=== PATIENT | female | born 1980 | race Caucasian/White ===

== ENCOUNTER 2017-02-12 08:48 | Emergency (ER) | payer OTHER ==
[2017-02-12 09:06] VITALS: BP 144/77
[2017-02-12] MEDS ORDERED: Sodium Chloride 0.9% 10 ML Syringe FLUSH PRN (09:10)
[2017-02-12] MEDS ORDERED: Acetaminophen 325 MG Tab PO ONE (09:27)
--- NOTE | 2017-02-12 09:43 | EDM.PDOC ---
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 She had onset of some mild pelvic discomfort last evening. She did have some more severe cramping and pelvic discomfort about 4 hours ago this morning and when she went to the bathroom there was "a gush of blood". She did not see any clots or tissue. The discomfort let up and she was able to go to work a couple of hours ago. The pain did start coming back about an hour ago and she does rate that mild to moderately uncomfortable at this time. No further vaginal bleeding or spotting up to this time. She has no chest or shoulder pain. No unusual dizziness. This had been going well for her up until this time. Uterine Pain Score (Numeric/FACES): 6 - Related Data Allergies Allergy/AdvReac Type Severity Reaction Status Date / Time No Known Allergies Allergy Verified 02/12/17 09:06 Home Meds: Home Meds Sertraline [Zoloft] 50 mg PO DAILY 08/28/14 [History] Albuterol [Proventil HFA] 2 puff INH Q4H PRN #1 inhaler 04/06/16 [Rx] Past Medical History - Past Health History Medical/Surgical History: Denies Medical/Surgical History Psychiatric History: Reports: Anxiety - Infectious Disease History Infectious Disease History: Reports: Chicken Pox Social & Family History - Family History Family Medical History: Noncontributory - Tobacco Use Smoking Status *Q: Never Smoker Second Hand Smoke Exposure: No - Caffeine Use Caffeine Use: Reports: Coffee - Alcohol Use Days Per Week of Alcohol Use: 0 - Recreational Drug Use Recreational Drug Use: No ED ROS GENERAL - Review of Systems Review Of Systems: See Below Constitutional: Denies: Fever, Diaphoresis HEENT: Reports: No Symptoms Respiratory: Denies: Shortness of Breath, Pleuritic Chest Pain Cardiovascular: Denies: Chest Pain GI/Abdominal: Denies: Abdominal Pain (No upper abdominal discomfort), Nausea, Vomiting : Reports: Other (One episode of vaginal bleeding about 4 hours ago). Denies : Flank Pain Musculoskeletal: Denies: Back Pain Skin: Reports: No Symptoms Neurological: Denies: Dizziness, Syncope ED EXAM - Physical Exam Exam: See Below General Appearance: Alert, Mild Distress Throat/Mouth: Normal Inspection Neck: Supple, Full Range of Motion Respiratory/Chest: No Respiratory Distress, Lungs Clear, Normal Breath Sounds Cardiovascular: Regular Rate, Rhythm GI/Abdominal: Soft, Other (Very mild tenderness lower mid abdomen and pelvis). No: Guarding, Rebound Back Exam: No: CVA Tenderness (L), CVA Tenderness (R) Extremities: Normal Inspection. No: Pedal Edema, Leg Pain Neurological: Alert, Oriented, No Motor/Sensory Deficits Skin Exam: Warm, Dry, Normal Color Course - Vital Signs Last Recorded V/S: Last Vital Signs Temp Pulse 75 02/12/17 08:58 Resp 18 02/12/17 08:58 BP 144/77 H 02/12/17 08:58 Pulse Ox 97 02/12/17 08:58 - Orders/Labs/Meds Orders: Active Orders 24 hr Category Date Time Status Peripheral IV Care [RC] . DIRECTED Care 02/12/17 09:11 Active OB Transvaginal [US] Stat Exams 02/12/17 09:28 Taken Sodium Chloride 0.9% [Saline Flush] Med 02/12/17 09:10 Active 10 ml FLUSH ASDIRECTED PRN Peripheral IV Insertion Adult [OM.PC] Stat Oth 02/12/17 09:11 Ordered Medication Orders Sodium Chloride (Saline Flush) 10 ml FLUSH ASDIRECTED PRN PRN Reason: Keep Vein Open Labs: Laboratory Tests 02/12/17 02/12/17 02/12/17 Range/Units 09:20 09:20 09:20 WBC 7.13 (3.98-10.04) K/mm3 RBC 4.61 (3.98-5.22) M/mm3 Hgb 12.3 (11.2-15.7) gm/L Hct 37.3 (34.1-44.9) % MCV 80.9 (79.4-94.8) fl MCH 26.7 (25.6-32.2) pg MCHC 33.0 (32.2-35.5) g/dl RDW Std Deviation 48.7 H (36.4-46.3) fL Plt Count 296 (182-369) K/mm3 MPV 9.4 (9.4-12.3) fl Neut % (Auto) 63.5 (34.0-71.1) % Lymph % (Auto) 26.6 (19.3-51.7) % [place] % (Auto) 6.3 (4.7-12.5) % Eos % (Auto) 3.1 (0.7-5.8) Baso % (Auto) 0.1 (0.1-1.2) % Neut # (Auto) 4.52 (1.56-6.13) K/mm3 Lymph # (Auto) 1.90 (1.18-3.74) K/mm3 [place] # (Auto) 0.45 H (0.24-0.36) K/mm3 Eos # (Auto) 0.22 (0.04-0.36) K/mm3 Baso # (Auto) 0.01 (0.01-0.08) K/mm3 HCG, Qual Cancelled HCG, Quant 71376.0 mIU/mL Blood Type Gel Antibody Screen 02/12/17 Range/Units 09:20 WBC (3.98-10.04) K/mm3 RBC (3.98-5.22) M/mm3 Hgb (11.2-15.7) gm/L Hct (34.1-44.9) % MCV (79.4-94.8) fl MCH (25.6-32.2) pg MCHC (32.2-35.5) g/dl RDW Std Deviation (36.4-46.3) fL Plt Count (182-369) K/mm3 MPV (9.4-12.3) fl Neut % (Auto) (34.0-71.1) % Lymph % (Auto) (19.3-51.7) % [place] % (Auto) (4.7-12.5) % Eos % (Auto) (0.7-5.8) Baso % (Auto) (0.1-1.2) % Neut # (Auto) (1.56-6.13) K/mm3 Lymph # (Auto) (1.18-3.74) K/mm3 [place] # (Auto) (0.24-0.36) K/mm3 Eos # (Auto) (0.04-0.36) K/mm3 Baso # (Auto) (0.01-0.08) K/mm3 HCG, Qual HCG, Quant mIU/mL Blood Type A POSITIVE Gel Antibody Screen Negative Meds: Medications Generic Name Dose Route Start Last Admin Trade Name Freniki PRN Reason Stop Dose Admin Sodium Chloride 10 ml 02/12/17 09:10 Saline Flush FLUSH ASDIRECTED PRN Keep Vein Open Discontinued Medications Generic Name Dose Route Start Last Admin Trade Name Freq PRN Reason Stop Dose Admin Acetaminophen 975 mg 02/12/17 09:27 Tylenol PO 02/12/17 09:28 NOW ONE - Re-Assessments/Exams Free Text/Narrative Re-Assessment/Exam: 02/12/17 11:16 US looks good at this time, see Radiologist report for details. She is resting comfortably at this time, cramping has stopped. No further bleeding since the episode about 6 hrs ago. Discharge instr. as documented. Departure - Departure Time of Disposition: 11:13 Disposition: Home, Self-Care 01 Condition: Fair Clinical Impression: First trimester Vaginal bleeding in Qualifiers: Trimester: first trimester Qualified Code(s): O46.91 - Antepartum hemorrhage, unspecified, first trimester - Discharge Information Referrals: Evelia Patel NP [Primary Care Provider] - Forms: ED Department Discharge Additional Instructions: rest, avoid exertional activity, avoid sexual activity for now, drink plenty of water to maintain hydration. Call for OB appt. if you have any further bleeding or cramping. Return to ED if sx worsening in any way, especially if you develop heavy bleeding soaking more than one pad per hour for more than 1 or 2 hours. - My Orders Last 24 Hours: My Active Orders 02/12/17 09:10 Sodium Chloride 0.9% [Saline Flush] 10 ml FLUSH ASDIRECTED PRN 02/12/17 09:11 Peripheral IV Care [RC] . DIRECTED Peripheral IV Insertion Adult [OM.PC] Stat 02/12/17 09:28 OB Transvaginal [US] Stat - Assessment/Plan Last 24 Hours: My Active Orders 02/12/17 09:10 Sodium Chloride 0.9% [Saline Flush] 10 ml FLUSH ASDIRECTED PRN 02/12/17 09:11 Peripheral IV Care [RC] . DIRECTED Peripheral IV Insertion Adult [OM.PC] Stat 02/12/17 09:28 OB Transvaginal [US] Stat
--- NOTE | 2017-02-12 11:21 | US ---
First trimester obstetrical ultrasound (multiple gestation) Dates: LMP: LMP given as 11/27/16, DONTAE 09/03/17, gestational age 11 weeks 0 days Twin A: Current ultrasound: DONTAE 09/04/17, gestational age 10 weeks 6 days Earliest ultrasound (01/15/17): DONTAE 09/07/17, gestational age 10 weeks 3 days Twin B: Current ultrasound: DONTAE 09/06/17, gestational age 10 weeks 4 days Earliest ultrasound (01/15/17) DONTAE 09/07/17, gestational age 10 weeks 3 days Separate membrane is identified between the 2 embryos compatible with 2 separate amniotic sacs. No subchorionic hemorrhage is seen. Small amount of free fluid is seen within the cul-de-sac which is incidental. Maternal ovaries are seen and appear unremarkable. Measurements: Twin A: [place]-rump length: 3.97 cm - 10 weeks 6 days Heart rate: 168 BPM Twin B: [place]-rump length: 4.03 cm - 11 weeks 0 days Heart rate: 168 BPM Impression: 1. Twin gestations developing in separate amniotic sacs. Dates as noted above. 2. No complicating process is appreciated by ultrasound at this time. Diagnostic code #1
== END 2017-02-12 11:45 | disposition home or self-care (01) ==
LOC: JD.ED 08:48
DX: O20.9 Hemorrhage in early pregnancy, unspecified (principal); O99.341 Other mental disorders complicating pregnancy, first trimester; F41.9 Anxiety disorder, unspecified; Z3A.11 11 weeks gestation of pregnancy
CPT/HCPCS: 36415; 76817; 84702; 85025; 86850; 86900; 86901; 99284; A9270; 99282

== ENCOUNTER 2017-02-24 22:51 | Emergency (ER) | payer OTHER ==
[2017-02-24 23:04] VITALS: BP 153/105
--- NOTE | 2017-02-24 23:40 | EDM.PDOC ---
ED HPI GENERAL MEDICAL PROBLEM - General Chief Complaint: Headache Stated Complaint: HEADACHE Time Seen by Provider: 02/24/17 23:40 - History of Present Illness INITIAL COMMENTS - FREE TEXT/NARRATIVE: 36-year-old female presents to the emergency room with a headache. Patient is in her first trimester with twins. Patient developed a headache several days ago. She was seen in the clinic diagnosed with sinusitis started on amoxicillin 875 mg twice a day she's been on this for about 5 days now has not noticed any appreciable improvement she was also started on Tylenol with Codeine this is not seem to help much. The patient was seen by her dentist who did not find any concerning dental issues. The patient is bothered by not being able to get any sleep. She denies fevers or chills she does not have frequent cough. If she tries to lie down she gets a throbbing sensation in her left upper teeth Left Face Pain Score (Numeric/FACES): 10 - Related Data Allergies Allergy/AdvReac Type Severity Reaction Status Date / Time No Known Allergies Allergy Verified 02/24/17 22:59 Home Meds: Home Meds Sertraline [Zoloft] 50 mg PO DAILY 08/28/14 [History] Albuterol [Proventil HFA] 2 puff INH Q4H PRN #1 inhaler 04/06/16 [Rx] Past Medical History - Past Health History Medical/Surgical History: Denies Medical/Surgical History Psychiatric History: Reports: Anxiety - Infectious Disease History Infectious Disease History: Reports: Chicken Pox Social & Family History - Family History Family Medical History: Noncontributory - Tobacco Use Smoking Status *Q: Never Smoker Second Hand Smoke Exposure: No - Caffeine Use Caffeine Use: Reports: Coffee - Alcohol Use Days Per Week of Alcohol Use: 0 - Recreational Drug Use Recreational Drug Use: No ED ROS GENERAL - Review of Systems Review Of Systems: See Below Constitutional: Reports: No Symptoms. Denies: Fever, Chills HEENT: Reports: Ear Pain, Sinus Problem Respiratory: Reports: No Symptoms Cardiovascular: Reports: No Symptoms Endocrine: Reports: No Symptoms GI/Abdominal: Reports: No Symptoms : Reports: No Symptoms Neurological: Reports: Headache. Denies: Confusion, Dizziness, Numbness Psychiatric: Reports: No Symptoms - Physical Exam Exam: See Below Exam Limited By: No Limitations General Appearance: Alert, No Apparent Distress Eye Exam: Bilateral Eye: Normal Inspection Ears: Normal External Exam, Normal Canal, Normal TMs Nose: Normal Inspection, Normal Mucosa, No Blood, Other (Sinus percussion reveals marked sinus tenderness over the left maxillary sinus this makes her pain much worse) Throat/Mouth: Normal Inspection, Normal Lips, Normal Teeth, Normal Gums, Normal Oropharynx, Normal Voice, No Airway Compromise Head Exam: Atraumatic, Normocephalic Neck: Normal Inspection, Supple, Non-Tender, Full Range of Motion. No: Lymphadenopathy (R) Respiratory/Chest: No Respiratory Distress, Lungs Clear, Normal Breath Sounds, No Accessory Muscle Use Cardiovascular: Regular Rate, Rhythm, No Edema, No Murmur GI/Abdominal: Normal Bowel Sounds, Soft, Non-Tender Neuro Exam (Abbreviated): Other (Cranial nerves II through XII grossly intact all muscle groups the upper and lower extremities are equal and appropriate bilaterally cerebellar testing is entirely within normal limits deep tendon reflexes are normal not brisk these are checked at the brachial radialis bilaterally and at the patellar tendons bilaterally) Back Exam: Normal Inspection. No: CVA Tenderness (L), CVA Tenderness (R) Extremities: Normal Inspection, No Pedal Edema Psychiatric: Normal Affect Course - Vital Signs Last Recorded V/S: Last Vital Signs Temp 36.8 C 02/24/17 22:59 Pulse 71 02/24/17 22:59 Resp 18 02/24/17 22:59 BP 153/105 H 02/24/17 22:59 Pulse Ox 100 02/24/17 22:59 - Orders/Labs/Meds Labs: Laboratory Tests 02/25/17 Range/Units 00:15 Urine Color Yellow (Yellow) Urine Appearance Clear (Clear) Urine pH 6.0 (5.0-8.0) Ur Specific [place] 1.020 (1.005-1.030) Urine Protein Negative (Negative) Urine Glucose (UA) Negative (Negative) Urine Ketones Negative (Negative) Urine Occult Blood Negative (Negative) Urine Nitrite Negative (Negative) Urine Bilirubin Negative (Negative) Urine Urobilinogen 0.2 (0.2-1.0) Ur Leukocyte Esterase Negative (Negative) Urine RBC Not seen (0-5) /hpf Urine WBC 0-5 (0-5) /hpf Ur Epithelial Cells 10-20 H (0-5) /hpf Urine Bacteria Rare (FEW) /hpf Urine Mucus Not seen (FEW) /hpf Meds: Medications Discontinued Medications Generic Name Dose Route Start Last Admin Trade Name Lloyd PRN Reason Stop Dose Admin Diphenhydramine HCl 25 mg 02/24/17 23:53 02/25/17 00:15 Benadryl IVPUSH 02/24/17 23:54 25 mg ONETIME ONE Administration Lactated Ringer's 1,000 mls @ 999 mls/hr 02/24/17 23:53 02/25/17 00:14 Ringers, Lactated IV 02/25/17 00:53 999 mls/hr .BOLUS ONE Administration Ondansetron HCl 4 mg 02/24/17 23:53 02/25/17 00:14 Zofran IVPUSH 02/24/17 23:54 4 mg ONETIME ONE Administration - Re-Assessments/Exams Free Text/Narrative Re-Assessment/Exam: 02/25/17 01:21 Patient has done well and emergency department because of her headaches could very well be sinus related. However she's been started on amoxicillin she has not responded in 4-5 days of therapy which isn't that abnormal. But I would be hoping to see some improvement. She was mildly hypertensive when she came in. With her this can be a little concerning urinalysis does not show any proteinuria she's not hyperreflexic and her exam is otherwise normal from a neurologic standpoint area the patient was treated with fluids Benadryl and Zofran the patient developed a little bit of dizziness requested the IV fluids be stopped. However at this point the patient feels much better and would like to go home and get some rest. Departure - Departure Time of Disposition: :23 Disposition: Home, Self-Care 01 Clinical Impression: Left maxillary sinusitis, Cephalgia - Discharge Information Referrals: Evelia Patel STRUCTURAL STEEL EQUIPMENT ERECTOR [Primary Care Provider] - Forms: ED Department Discharge Additional Instructions: Return to the emergency room with any questions problems or worsening symptoms. Go home and get some sleep. Follow-up with Dr. Eller later this week recheck your blood pressure.
[2017-02-24] MEDS ORDERED: Lactated Ringers 1,000 ML IV ONE (23:53)
[2017-02-24] MEDS ORDERED: diphenhydrAMINE 50 MG/ML SDV IVPUSH ONE (23:53)
[2017-02-24] MEDS ORDERED: Ondansetron 4 MG/2 ML SDV IVPUSH ONE (23:53)
== END 2017-02-25 01:33 | disposition home or self-care (01) ==
LOC: JD.ED 22:51
DX: J32.0 Chronic maxillary sinusitis (principal); F41.9 Anxiety disorder, unspecified
CPT/HCPCS: 81001; 96374; 96375; 99284; J1200; J2405; J7120; 99283

== ENCOUNTER 2017-08-06 23:19 | Inpatient (IN) | payer OTHER ==
[2017-08-07] MEDS ORDERED: Ondansetron 4 MG/2 ML SDV IVPUSH PRN ×2 (00:41→09:58)
[2017-08-07] MEDS ORDERED: Sodium Chloride 0.9% 10 ML Syringe FLUSH PRN (00:41)
[2017-08-07] MEDS ORDERED: Albuterol 6.7 GM Inhaler INH PRN (00:41)
[2017-08-07] MEDS ORDERED: Lidocaine 1% 50 ML MDV INJECT ONE (00:41)
[2017-08-07] MEDS ORDERED: AMPICILLIN IV ONE (00:41)
[2017-08-07] MEDS ORDERED: SODIUM CHLORIDE 0.9% IV ONE (00:41)
[2017-08-07] MEDS ORDERED: Nalbuphine 20 MG/1 ML Amp IVPUSH PRN (00:41)
[2017-08-07] MEDS ORDERED: Oxytocin/Lactated Ringers 10 UNIT/1,000 ML BAG IV SCH (00:45)
--- NOTE | 2017-08-07 01:01 | PCM.LDHP ---
L&D History of Present Illness - General Date of Service: 08/07/17 Admit Problem/Dx: Patient Status Order with Admit Dx/Problem 08/07/17 00:41 Patient Status [ADT] Routine Admission Diagnosis/Problem Admission Diagnosis/Problem complications 08/07/17 00:51 37-year-old 2 para 1001 white female with diamniotic dichorionic twin gestation at 36-1/7 weeks gestational age with an DONTAE of 09/03/2017 admitted to labor and delivery with spontaneous rupture membranes. Both babies in vertex presentation. Last ultrasound shows babies at the low end of the normal growth spectrum. heart tones are reassuring at this time. No significant contractions noted. Source of Information: Patient History Limitations: Reports: No Limitations - History of Present Illness Introduction:: Nae is a 37-year-old 2 para 1001 white female was admitted with ruptured membranes in a diamniotic dichorionic twin gestation that has an DONTAE of 09/03/2017 and a present gestational age of 36-1/7 weeks upon admission. Patient had rupture membranes at approximately 2200 hrs. today and noted clear amniotic fluid. Babies have been active. No significant contractions noted. 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 Her previous resulted in a term delivery at 42 weeks gestational age on 01/09/20028 lbs. 0 oz. female born via normal spontaneous vaginal delivery-child's name is Bhaskar. This saw first visit at 10-5/7 weeks on 02/10/2017. Patient seen on a regular basis and was I participant in the centering program. Her weight at first visit was 282 pounds her weight at last visit was 325 pounds for a 43 pound weight gain. Ultrasound evaluated growth interval shows babies to be equal in growth but at the lower end of the normal gross spectrum. Biophysical profiles have been 8/8 in recent weeks. She has had hypertension throughout the whole which was first diagnosed at her first visit.. She's been on labetalol throughout her and recently has been on 600 mg in the a.m. and 300 mg orally 3 other times per day. With this her blood pressures of been creeping up. Laboratory testing and shows her blood to be A+. Initial hemoglobin on at first visit was 12.4 g for deciliter. Platelets are 340,000. She is rubella immune. RPR is nonreactive. Initial culture of the urine showed E coli and patient was treated for this. Her hepatitis B surface antigen and HIV assays were negative. Gonorrhea and chlamydia assays both negative. Second trimester labs included a hemoglobin that was low at 11.1 g/dL and a platelet count which is normal at 309,000. One hour GTT was normal at 128. Group B strep screen has not been done. Allergies: None Medications: 1. Labetalol 300 mg tablets 2 by mouth every morning then 1 by mouth 3 other times per day. 2. Fluticasone appropriately at 50 g nasal action when necessary 3. vitamins daily Past medical history: 1. Vaginal delivery 1-01/09/2002 2. Asthma. 3. Anxiety had been on medication 4. History of abnormal Pap smear-MOHINI-3 with loop electrosurgical excision procedure done in 2013 5. Obesity Past surgical history: 1. LEEP Family history: no significant family history of bleeding disorders, blood clotting disorders, anesthesia or -related problems. 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 She is a college graduate. She lives in [place]. She does not use any significant loss of alcohol, drugs or tobacco. Her significant other is Rocael De La O. Review of systems: In general patient is doing fine. She is not having any contractions of significance. She does feel the babies move. She is leaking clear amniotic fluid grossly. Skin: Negative Respiratory: No shortness of breath other than that caused by twin gestation, no infectious symptoms Cardiovascular: No exercise intolerance other than that related to , no chest pain Breasts: Negative other than changes associated GI: Negative : Abdomen protuberant Neurological exam: Negative Musculoskeletal: 1+ pitting edema bilateral lower extremities Physical exam: In general patient is well-developed well-nourished pleasant female stated age in no acute distress. She is alert and oriented 3. Blood pressure is borderline elevated. Other vital signs stable. Skin is warm and dry without lesions. Lungs are clear with good breath sounds in all lung anand. Cardiovascular exam shows regular rate and rhythm without murmurs. Breasts exam deferred having that done at first visit [place] normal Abdomen is protuberant with fundal height of approximately 44 cm Cervix is 2+ centimeters 95% effaced -3 station mid position first baby is present and cephalically as could per bedside ultrasound and exam. Extremities show 1+ pitting edema lower extremity bilaterally. 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: Psychiatric History: Reports: Anxiety - Infectious Disease History Infectious Disease History: Reports: Chicken Pox - Past Surgical History Female Surgical History: Reports: LEEP Social & Family History - Family History Family Medical History: Noncontributory - Tobacco Use Smoking Status *Q: Never Smoker Second Hand Smoke Exposure: No - Caffeine Use Caffeine Use: Reports: Coffee - Alcohol Use Days Per Week of Alcohol Use: 0 - Recreational Drug Use Recreational Drug Use: No H&P Review of Systems - Review of Systems: Review Of Systems: See Below L&D Exam - Exam Exam: See Below Problem List Initiated/Reviewed/Updated: Yes Orders Last 24hrs: Active Orders 24 hr Category Date Time Status Patient Status [ADT] Routine ADT 08/07/17 00:41 Ordered Activity as Tolerated [RC] PFP Care 08/07/17 00:41 Ordered Communication Order [RC] ASDIRECTED Care 08/07/17 00:41 Ordered Heart Tones [RC] ASDIRECTED Care 08/07/17 00:42 Ordered Notify Provider Vital Signs [RC] PRN Care 08/07/17 00:41 Ordered Notify Provider [RC] PFP Care 08/07/17 00:41 Ordered Notify Provider [RC] PRN Care 08/07/17 00:41 Ordered Peripheral IV Care [RC] . DIRECTED Care 08/07/17 00:42 Ordered Pump Management, Intrathecal [RC] ASDIRECTED Care 08/07/17 00:41 Ordered Verify Patient Consent Obtain [RC] ASDIRECTED Care 08/07/17 00:41 Ordered Vital Signs [RC] PER UNIT ROUTINE Care 08/07/17 00:41 Ordered Clear Liquid Diet [DIET] Diet 08/06/17 Dinner Ordered ALANINE AMINOTRANSFERASE,ALT [CHEM] Stat Lab 08/07/17 00:47 Ordered ASPARTATE AMNIOTRANSFERASE,AST [CHEM] Stat Lab 08/07/17 00:47 Ordered BLOOD UREA NITROGEN,BUN [CHEM] Stat Lab 08/07/17 00:47 Ordered CBC WITH AUTO DIFF [HEME] Stat Lab 08/07/17 00:41 Ordered CBC WITH AUTO DIFF [HEME] Stat Lab 08/07/17 00:47 Ordered CREATININE W/GFR [CHEM] Stat Lab 08/07/17 00:47 Ordered LACTATE DEHYDROGENASE,LDH [CHEM] Stat Lab 08/07/17 00:47 Ordered TYPE AND SCREEN [BBK] Stat Lab 08/07/17 00:41 Ordered URIC ACID [CHEM] Stat Lab 08/07/17 00:47 Ordered Albuterol [Proventil HFA] Med 08/07/17 00:41 Ordered 2 puff INH Q4H PRN Ampicillin 1 gm Med 08/07/17 00:45 Ordered Sodium Chloride 0.9% [Normal Saline] 100 ml IV Q4H Ampicillin 3 gm Med 08/07/17 00:41 Ordered Sodium Chloride 0.9% [Normal Saline] 100 ml IV ONETIME Labetalol [Normodyne] Med 08/07/17 09:00 Ordered 600 mg PO TID Lactated Ringers [Ringers, Lactated] 1,000 ml Med 08/07/17 00:45 Ordered IV ASDIRECTED Lidocaine 1% [Xylocaine 1%] Med 08/07/17 00:41 Once 10 ml INJECT ONETIME ONE Nalbuphine [Nubain] Med 08/07/17 00:41 Ordered 10 mg IVPUSH Q2H PRN Ondansetron [Zofran] Med 08/07/17 00:41 Ordered 4 mg IVPUSH Q4H PRN Oxytocin/Lactated Ringers [Pitocin in LR 10 Units/1,000 Med 08/07/17 00:45 Ordered ML] 10 unit in 1,000 ml IV TITRATE Sodium Chloride 0.9% [Saline Flush] Med 08/07/17 00:41 Ordered 10 ml FLUSH ASDIRECTED PRN Electronic Heart Tones Ext w TOCO [WOMSER] Oth 08/07/17 00:41 Ordered Routine Electronic Heart Tones Internal [WOMSER] Per Unit Oth 08/07/17 00:41 Ordered Routine PIH Panel [OM.PC] Stat Oth 08/07/17 00:41 Ordered Peripheral IV Insertion Adult [OM.PC] Routine Oth 08/07/17 00:41 Ordered Resuscitation Status Routine Resus Stat 08/07/17 00:41 Ordered Medication Orders Albuterol (Proventil Hfa) 0 gm INH Q4H PRN PRN Reason: Cough Assessment/Plan Comment:: Assessment: 1. 36-17 week intrauterine 2. Hypertension-probably essential hypertension-nicked up at the beginning of the now treated with moderate doses of labetalol with less than optimal success 3. Diamniotic/dichorionic twin gestation 4. Group B strep status unknown 5. Asthma -stable 6. Patient plans to nurse 7. Risk factors for the include the asthma, hypertension, twin gestation, obesity, age of 37 Plan: 1. Anticipate normal spontaneous vaginal delivery. The OR, anesthesia and pediatric staff have been notified patient's presence here. 2. labs to be obtained 3. Consent for to be signed 4. Continuous monitoring of both babies 5. Will deliver the babies in the operating with staff standing by and pediatrics present. 6. Clear liquid diet
[2017-08-07] MEDS ORDERED: Lidocaine 1% 2 ML ONE (01:29)
--- NOTE | 2017-08-07 02:02 | PCM.PREANE ---
Preanesthetic Assessment - Anesthesia/Transfusion/Family Hx Anesthesia History: No Prior Anesthesia Family History of Anesthesia Reaction: No Transfusion History: No Prior Transfusion(s) - Review of Systems General: No Symptoms Pulmonary: No Symptoms Cardiovascular: Edema (1+), Other (Hypertension) Neurological: No Symptoms Other: Reports: None - Physical Assessment Pulse: 85 O2 Sat by Pulse Oximetry: 99 Respiratory Rate: 17 Blood Pressure: 157/87 Weight: 147.418 kg ASA Class: 2 Mental Status: Alert & Oriented x3 Airway Class: Mallampati = 2 Dentition: Reports: Normal Dentition Thyro-Mental Finger Breadths: 3 Mouth Opening Finger Breadths: 3 ROM/Head Extension: Full Lungs: Clear to Auscultation, Normal Respiratory Effort Cardiovascular: Regular Rate, Regular Rhythm - Lab Values: Laboratory Last Values WBC 7.42 K/mm3 (3.98-10.04) 08/07/17 01:10 RBC 3.76 M/mm3 (3.98-5.22) L 08/07/17 01:10 Hgb 9.4 gm/L (11.2-15.7) L 08/07/17 01:10 Hct 30.1 % (34.1-44.9) L 08/07/17 01:10 MCV 80.1 fl (79.4-94.8) 08/07/17 01:10 MCH 25.0 pg (25.6-32.2) L 08/07/17 01:10 MCHC 31.2 g/dl (32.2-35.5) L 08/07/17 01:10 RDW Std Deviation 43.5 fL (36.4-46.3) 08/07/17 01:10 Plt Count 285 K/mm3 (182-369) 08/07/17 01:10 MPV 10.4 fl (9.4-12.3) 08/07/17 01:10 Neut % (Auto) 66.3 % (34.0-71.1) 08/07/17 01:10 Lymph % (Auto) 22.9 % (19.3-51.7) 08/07/17 01:10 Arthur % (Auto) 7.7 % (4.7-12.5) 08/07/17 01:10 Eos % (Auto) 2.7 (0.7-5.8) 08/07/17 01:10 Baso % (Auto) 0.3 % (0.1-1.2) 08/07/17 01:10 Neut # (Auto) 4.92 K/mm3 (1.56-6.13) 08/07/17 01:10 Lymph # (Auto) 1.70 K/mm3 (1.18-3.74) 08/07/17 01:10 Arthur # (Auto) 0.57 K/mm3 (0.24-0.36) H 08/07/17 01:10 Eos # (Auto) 0.20 K/mm3 (0.04-0.36) 08/07/17 01:10 Baso # (Auto) 0.02 K/mm3 (0.01-0.08) 08/07/17 01:10 BUN 10 mg/dL (7-18) 08/07/17 01:10 Creatinine 0.7 mg/dL (0.55-1.02) 08/07/17 01:10 Est Cr Clr Drug Dosing TNP 08/07/17 01:10 Estimated GFR (MDRD) > 60 mL/min (>60) 08/07/17 01:10 Uric Acid 5.1 mg/dL (2.6-6.0) 08/07/17 01:10 AST 13 U/L (15-37) L 08/07/17 01:10 ALT 15 U/L (14-59) 08/07/17 01:10 Lactate Dehydrogenase 164 U/L (81-234) 08/07/17 01:10 - Allergies Allergies/Adverse Reactions: Allergies Allergy/AdvReac Type Severity Reaction Status Date / Time No Known Allergies Allergy Verified 07/29/17 10:17 - Acknowledgements Anesthesia Type Planned: Epidural Pt an Appropriate Candidate for the Planned Anesthesia: Yes Alternatives and Risks of Anesthesia Discussed w Pt/Guardian: Yes Pt/Guardian Understands and Agrees with Anesthesia Plan: Yes PreAnesthesia Questionnaire - Past Health History Medical/Surgical History: Denies 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: Psychiatric History: Reports: Anxiety - Infectious Disease History Infectious Disease History: Reports: Chicken Pox - Past Surgical History Female Surgical History: Reports: LEEP - SUBSTANCE USE Smoking Status *Q: Never Smoker Second Hand Smoke Exposure: No Days Per Week of Alcohol Use: 0 Recreational Drug Use History: No - HOME MEDS Home Medications: Home Meds Sertraline [Zoloft] 50 mg PO DAILY 08/28/14 [History] Albuterol [Proventil HFA] 2 puff INH Q4H PRN #1 inhaler 04/06/16 [Rx] - CURRENT (IN HOUSE) MEDS Current Meds: Current Medications Albuterol (Proventil Hfa) 0 gm INH Q4H PRN PRN Reason: Cough Ampicillin Sodium 1 gm/ Sodium (Chloride) 100 mls @ 200 mls/hr IV Q4H ADRIANNE Lactated Ringer's (Ringers, Lactated) 1,000 mls @ 100 mls/hr IV ASDIRECTED ADRIANNE Oxytocin/Lactated Ringer's (Pitocin In Lr 10 Units/1,000 Ml) 10 unit in 1,000 mls @ 12 mls/hr IV TITRATE ADRIANNE; 2 MUNITS/MIN PRN Reason: Protocol Labetalol HCl (Normodyne) 600 mg PO TID ADRIANNE Nalbuphine HCl (Nubain) 10 mg IVPUSH Q2H PRN PRN Reason: Pain (moderate 4-6) Ondansetron HCl (Zofran) 4 mg IVPUSH Q4H PRN PRN Reason: Nausea/Vomiting Sodium Chloride (Saline Flush) 10 ml FLUSH ASDIRECTED PRN PRN Reason: Keep Vein Open Discontinued Medications Ampicillin Sodium 2 gm/Ampicillin Sodium 1 gm/ Sodium Chloride 100 mls @ 200 mls/hr IV ONETIME ONE Stop: 08/07/17 01:10 Lidocaine HCl (Xylocaine-Mpf 1%) Confirm Administered Dose 2 mls @ as directed .ROUTE .STK-MED ONE Stop: 08/07/17 01:30 Lidocaine HCl (Xylocaine 1%) 10 ml INJECT ONETIME ONE Stop: 08/07/17 00:42
[2017-08-07] MEDS ORDERED: Ampicillin 1 GM Vial ONE (02:41)
[2017-08-07] MEDS ORDERED: Sodium Chloride 0.9% 100 ML ONE ×2 (02:42)
[2017-08-07] MEDS: Lactated Ringers 1,000 ML IV SCH ×2 (02:50→09:58)
[2017-08-07] MEDS ORDERED: Lidocaine 1% 10 ML MDV INJECT ONE (04:10)
[2017-08-07] MEDS ORDERED: Lidocaine 1% PF 2 ML SDV INJECT ONE (04:15)
[2017-08-07] MEDS: Ampicillin 1 GM in Sodium Chloride 0.9% 100 ML IV SCH ×2 (06:52→10:45)
[2017-08-07] MEDS ORDERED: LABETALOL 300 MG PO SCH (09:00)
--- NOTE | 2017-08-07 09:37 | PCM.SN ---
- Free Text/Narrative Note: Evaluation this a.m. at 0915 hrs. shows clinical vital signs are stable. Patient is afebrile. Blood type monitoring shows reassuring heart tones for both twin A and twin B. Blood pressures have been manageable on labetalol. Her cervix is 3 cm, 100% effaced, -2 station, mid position and very soft. Intrauterine pressure catheter is placed without problems. Contractions are every 3-5 minutes and moderate intensity. Assessment: Slow progression of labor and twin gestation at 36-1/7 weeks gestational age. Both babies in vertex presentation. Plan: 1. Continue with Pitocin augmentation 2. Internal pressure transducer for closer contraction monitoring 3. Continue with ampicillin prophylaxis 4. We will plan to deliver in the operating room with operating room, surgical supply assistant and pediatric staff present. Vacuum extractor and paper forceps will be available in the room.
[2017-08-07] MEDS ORDERED: fentaNYL 100 MCG/2 ML SDV EPIDUR PRN (09:58)
[2017-08-07] MEDS ORDERED: diphenhydrAMINE 50 MG/ML SDV IVPUSH PRN (09:58)
[2017-08-07] MEDS ORDERED: Bupivacaine/fentaNYL/NS 100 ML Bag EPIDUR SCH (10:00)
[2017-08-07] MEDS ORDERED: Bupivacaine 0.5% 30 ML SDV ONE (12:16)
[2017-08-07] MEDS ORDERED: Witch Hazel Medicated Pads 100/Jar TOP PRN (13:03)
[2017-08-07] MEDS ORDERED: Lanolin 100% Cream 7 GM Tube TOP PRN (13:03)
[2017-08-07] MEDS ORDERED: Benzocaine/Menthol 20%-0.5% Spray 56 GM Canister TOP PRN (13:03)
[2017-08-07] MEDS ORDERED: Acetaminophen 325 MG Tab PO PRN (13:03)
--- NOTE | 2017-08-07 13:09 | PCM.SN ---
- Free Text/Narrative Note: Nae is a 37-year-old 2 para 1103 white female who was admitted last evening with spontaneous rupture membranes in a 36-1/7 week intrauterine diamniotic dichorionic twin gestation. She is started on Pitocin augmentation when labor did not progress in an adequate fashion. She achieved complete cervical dilation. At that time she was taken to the operating room in case section would've been necessary. She pushed for approximately half an hour. Baby A's heart rate began decreasing down to the rate of 60. Patient was pushing less than optimally and decision was made to proceed with vacuum extraction. Vacuum extraction was discussed with patient and her significant other and was agreed upon by both patient and her significant other. The vacuum extractor was then placed and with one push the patient delivered the baby. Baby was handed off to the attending reel and rewinder operator Dr. melgoza. At this time cord 1 was clamped with a plastic clamp. Ultrasound identified that the baby B was coming in a headdown position. The vaginal exam was performed the baby's head was descending into the pelvis. Second bag was ruptured resulting in clear amniotic fluid. This baby also had deceleration and it did not bring heart rate above the 95 decision was made to proceed with vacuum extraction with this second twin. Vacuum extractor was placed and with 1 push this baby also delivered. No problems were encountered. With both babies cords were clamped 2 and cut. After delivery of both twins cord was obtained from each cord. Baby A weighed 4 lbs. 3 oz., was a male , Apgars 7 and 8, delivered at 1228 on 08/07/2017 Baby B weighed 4 lbs. 14 oz., was a male infant, Apgars of 5 and 7, delivered at 1237 on 08/07/2017 The placenta delivered in a Bettina presentation. Appeared intact and complete. Both cords had 3 vessels present in them. A second-degree perineal laceration was repaired with 3-0 Monocryl in a routine fashion. Estimated blood loss was approximately 300 mL. Patient plans to breast-feed. Condition good. Epidural used for analgesia in labor and for anesthesia for the perineal laceration repair.
[2017-08-07] MEDS ORDERED: LABETALOL HCL 300 MG PO SCH (14:00)
[2017-08-07] MEDS: LABETALOL 300 MG PO SCH ×2 (14:55→21:00)
[2017-08-08] MEDS: Ibuprofen 600 MG Tab PO PRN ×3 (06:14→23:00)
[2017-08-08] MEDS: LABETALOL 300 MG PO SCH ×3 (08:00→22:00)
--- NOTE | 2017-08-08 10:12 | PCM.SN ---
- Free Text/Narrative Note: Good recovery. Patient is doing well. She slept poorly last night because the tones were awake. They didn't find in her in the room. Patient is afebrile, vital signs stable, Abdomen is flat soft, nontender with uterus at umbilicus. Lower extremities show 1+ pitting edema bilaterally. Assessment: day 1 status post delivery of twins. Twins doing well. Patient doing fine. Plan: Routine cares. Breast-feeding instructions given. consultation available.
[2017-08-08] MEDS: Prenatal Multivitamin with Calcium/Folic Acid/Iron Tab PO SCH (14:53)
--- NOTE | 2017-08-08 19:14 | PCM48HPAN ---
Post Anesthesia Note - EVALUATION WITHIN 48HRS OF ANESTHETIC Vital Signs in Normal Range: Yes Patient Participated in Evaluation: Yes Respiratory Function Stable: Yes Airway Patent: Yes Cardiovascular Function Stable: Yes Hydration Status Stable: Yes Pain Control Satisfactory: Yes Nausea and Vomiting Control Satisfactory: Yes Mental Status Recovered: Yes
--- NOTE | 2017-08-09 08:30 | PCM.DCSUM1 ---
Discharge Summary - Hospital Course Free Text/Narrative:: Nae is a 37-year-old 2 para 1103 white female who was admitted last evening with spontaneous rupture membranes in a 36-1/7 week intrauterine diamniotic dichorionic twin gestation. She is started on Pitocin augmentation when labor did not progress in an adequate fashion. She achieved complete cervical dilation. At that time she was taken to the operating room in case section would've been necessary. She pushed for approximately half an hour. Baby A's heart rate began decreasing down to the rate of 60. Patient was pushing less than optimally and decision was made to proceed with vacuum extraction. Vacuum extraction was discussed with patient and her significant other and was agreed upon by both patient and her significant other. The vacuum extractor was then placed and with one push the patient delivered the baby. Baby was handed off to the attending construction technician Dr. melgoza. At this time cord 1 was clamped with a plastic clamp. Ultrasound identified that the baby B was coming in a headdown position. The vaginal exam was performed the baby's head was descending into the pelvis. Second bag was ruptured resulting in clear amniotic fluid. This baby also had deceleration and it did not bring heart rate above the 95 decision was made to proceed with vacuum extraction with this second twin. Vacuum extractor was placed and with 1 push this baby also delivered. No problems were encountered. With both babies cords were clamped 2 and cut. After delivery of both twins cord was obtained from each cord. Baby A weighed 4 lbs. 3 oz., was a male infant, Apgars 7 and 8, delivered at 1228 on 08/07/2017 Baby B weighed 4 lbs. 14 oz., was a male infant, Apgars of 5 and 7, delivered at 1237 on 08/07/2017 The placenta delivered in a Gonzalez presentation. It appeared intact and complete. Both cords had 3 vessels present in them. Placenta was sent for histologic evaluation. A second-degree perineal laceration was repaired with 3- 0 Monocryl in a routine fashion. Estimated blood loss was approximately 300 mL. Patient plans to breast-feed. Condition good. Epidural used for analgesia in labor and for anesthesia for the perineal laceration repair. the patient was done very well. Patient is afebrile and vital signs are stable. She is nursing which is going reasonably well considering the gestational age of her twins. Her lochia is minimal. Her swelling continues but is manageable. Her hemoglobin has dropped significantly but was low to begin with upon admission to the hospital. In general clinically she is doing well. She has taken vitamins and will be continued on iron. She desires to go home today. - Discharge Data Discharge Date: 08/09/17 Discharge Disposition: Home, Self-Care 01 Condition: Good - Patient Instructions Diet: Regular Diet as Tolerated (Nursing diet with increase calories and calcium. Patient to stay on her vitamins while nursing.) Activity: As Tolerated (No intercourse or tampons until bleeding resolves) Driving: Do Not Drive (For at least 3-4 days.) Showering/Bathing: May Shower (May take a bath) Notify Provider of: Fever, Increased Pain, Swelling and Redness, Nausea and/or Vomiting - Discharge Plan Prescriptions/Med Rec: Ferrous Sulfate 325 mg PO BID #100 tablet Home Medications: Home Meds Ranitidine [Zantac] 150 mg PO BID 08/07/17 [History] Ferrous Sulfate 325 mg PO BID #100 tablet 08/09/17 [Rx] Ibuprofen [IJD: Ibuprofen] 600 mg PO Q4H PRN tablet 08/09/17 [Rx] Labetalol HCl [Labetalol] 300 mg PO TID #30 08/09/17 [Rx] Referrals: David Eller MD [Primary Care Provider] - (Return to clinic1 [facility] or Dr. Eller.) - Discharge Summary/Plan Comment DC Time >30 min.: No Discharge Summary/Plan Comment: Discharge instructions: 1. Discharge home 2. Diet, activity and follow-up discussed with patient. Recommend nursing diet with increased calories and calcium. 3. Precautions given concern increased pain, bleeding, temperature, signs/ symptoms of DVT/PE. 4. Medications per home medication was printed, discussed with and given to the patient. 5. Return to clinic-Dr. Eller or [facility] [place] in 1 week. Diagnosis: Term -delivered Condition: Good - Patient Data Vitals - Most Recent: Last Vital Signs Temp 36.9 C 08/09/17 04:18 Pulse 79 08/09/17 04:18 Resp 14 08/09/17 04:18 BP 138/70 08/09/17 04:18 Pulse Ox 98 08/09/17 04:18 Weight - Most Recent: 147.78 kg Med Orders - Current: Current Medications Acetaminophen (Tylenol) 650 mg PO Q4H PRN PRN Reason: mild pain or fever Benzocaine/Menthol (Dermoplast Pain Relief Capac) 0 gm TOP ASDIRECTED PRN PRN Reason: Perineal Comfort Measure Last Admin: 08/07/17 13:36 Dose: 56 gm Emollient Ointment (Lansinoh Hpa) 0 gm TOP ASDIRECTED PRN PRN Reason: Sore Nipples Ibuprofen (Motrin) 600 mg PO Q4H PRN PRN Reason: Mild pain or fever Last Admin: 08/08/17 23:00 Dose: 600 mg Labetalol 300mg (Own Med) 1 each PO TID [facility] Last Admin: 08/08/17 22:00 Dose: 1 each Prenat Multivit/Planisher/Iron/Folic Ac ( Plus Iron) 1 each PO DAILY [facility] Last Admin: 08/08/17 14:53 Dose: 1 each Witch Vicky (Tucks) 1 pad TOP ASDIRECTED PRN PRN Reason: Hemorrhoid pain Last Admin: 08/07/17 13:36 Dose: 1 jar Discontinued Medications Albuterol (Proventil Hfa) 0 gm INH Q4H PRN PRN Reason: Cough Ampicillin Sodium (Ampicillin) Confirm Administered Dose 1 gm .ROUTE .STK-MED ONE Stop: 08/07/17 02:42 Last Admin: 08/07/17 02:51 Dose: Not Given Bupivacaine HCl (Marcaine 0.5%) Confirm Administered Dose 30 ml .ROUTE .STK-MED ONE Stop: 08/07/17 12:17 Diphenhydramine HCl (Benadryl) 25 mg IVPUSH Q6H PRN PRN Reason: Pruritis Fentanyl (Sublimaze) 100 mcg EPIDUR ONETIME PRN PRN Reason: Pain Last Admin: 08/07/17 10:07 Dose: 100 mcg Fentanyl/Bupivacaine HCl (Fentanyl/Bupivacaine/Ns 2 Mcg-0.125% 100 Ml) 100 ml EPIDUR ASDIRECTED ADRIANNE Last Admin: 08/07/17 10:07 Dose: 100 ml Ampicillin Sodium 2 gm/Ampicillin Sodium 1 gm/ Sodium Chloride 100 mls @ 200 mls/hr IV ONETIME ONE Stop: 12/16/17 01:10 Last Admin: 08/07/17 02:51 Dose: 200 mls/hr Ampicillin Sodium 1 gm/ Sodium (Chloride) 100 mls @ 200 mls/hr IV Q4H ADRIANNE Last Admin: 08/07/17 10:45 Dose: 200 mls/hr Lactated Ringer's (Ringers, Lactated) 1,000 mls @ 100 mls/hr IV ASDIRECTED ADRIANNE Last Admin: 08/07/17 09:58 Dose: 999 mls/hr Oxytocin/Lactated Ringer's (Pitocin In Lr 10 Units/1,000 Ml) 10 unit in 1,000 mls @ 12 mls/hr IV TITRATE ADRIANNE; 2 MUNITS/MIN PRN Reason: Protocol Last Titration: 08/07/17 08:34 Dose: 10 munits/min, 60 mls/hr Lidocaine HCl (Xylocaine-Mpf 1%) Confirm Administered Dose 2 mls @ as directed .ROUTE .STK-MED ONE Stop: 08/07/17 01:30 Last Admin: 08/07/17 04:11 Dose: Not Given Sodium Chloride (Normal Saline) Confirm Administered Dose 100 mls @ as directed .ROUTE .STK-MED ONE Stop: 08/07/17 02:43 Last Admin: 08/07/17 02:51 Dose: Not Given Sodium Chloride (Normal Saline) Confirm Administered Dose 100 mls @ as directed .ROUTE .STK-MED ONE Stop: 08/07/17 02:43 Last Admin: 08/07/17 02:51 Dose: Not Given Labetalol HCl (Normodyne) 600 mg PO TID ADRIANNE Last Admin: 08/07/17 08:51 Dose: 600 mg Lidocaine HCl (Xylocaine 1%) 10 ml INJECT ONETIME ONE Stop: 08/07/17 00:42 Last Admin: 08/07/17 17:55 Dose: Not Given Lidocaine HCl (Xylocaine 1%) 10 ml INJECT ONETIME ONE Stop: 08/07/17 04:11 Last Admin: 08/07/17 04:54 Dose: Not Given Lidocaine HCl (Xylocaine-Mpf 1%) 2 ml INJECT ONETIME ONE Stop: 08/07/17 04:16 Last Admin: 08/07/17 02:00 Dose: 0.1 ml Nalbuphine HCl (Nubain) 10 mg IVPUSH Q2H PRN PRN Reason: Pain (moderate 4-6) H (Labetalol Hcl [ Labetalol] 300 Mg) Own Med 300 mg PO 5XDAY ADRIANNE Ondansetron HCl (Zofran) 4 mg IVPUSH Q4H PRN PRN Reason: Nausea/Vomiting Ondansetron HCl (Zofran) 4 mg IVPUSH ONETIME PRN PRN Reason: Nausea/Vomiting Sodium Chloride (Saline Flush) 10 ml FLUSH ASDIRECTED PRN PRN Reason: Keep Vein Open *Q Meaningful Use (DIS) - VTE *Q VTE Criteria *Q: - Stroke *Q Stroke Criteria *Q: - AMI *Q AMI Criteria *Q:
[2017-08-09] MEDS: LABETALOL 300 MG PO SCH (09:00)
[2017-08-09] MEDS: Prenatal Multivitamin with Calcium/Folic Acid/Iron Tab PO SCH (11:32)
[2017-08-09] MEDS: Ibuprofen 600 MG Tab PO PRN (11:33)
[2017-08-09 12:44] VITALS: BP 134/70
== END 2017-08-09 14:15 | disposition home or self-care (01) | DRG 775 ==
LOC: JD.OBCHECK 23:19 → JD.OB 23:25 → UNDOADMIN 08-07 00:52 → JD.OBCHECK 08-07 00:52 → JD.OB 08-07 00:52 → INTOOBSV 08-07 12:28 → JD.OB 08-07 12:28 → OBSVTOIN 08-07 12:28
PROVIDERS: ADMIT Obstetrics & Gynecology; ATTEND Obstetrics & Gynecology
PROC: 10D07Z6 Extraction of Products of Conception, Vacuum, Via Natural or Artificial Opening (ICD-10-PCS; principal; 2017-08-07)
PROC: 0KQM0ZZ Repair Perineum Muscle, Open Approach (ICD-10-PCS; 2017-08-07)
PROC: 10907ZC Drainage of Amniotic Fluid, Therapeutic from Products of Conception, Via Natural or Artificial Opening (ICD-10-PCS; 2017-08-07)
PROC: 00HU33Z Insertion of Infusion Device into Spinal Canal, Percutaneous Approach (ICD-10-PCS; 2017-08-07)
PROC: 3E0R3BZ Introduction of Anesthetic Agent into Spinal Canal, Percutaneous Approach (ICD-10-PCS; 2017-08-07)
DX: O42.013 Preterm premature rupture of membranes, onset of labor within 24 hours of rupture, third trimester (principal); Z37.2 Twins, both liveborn; Z3A.36 36 weeks gestation of pregnancy; O99.214 Obesity complicating childbirth; O99.52 Diseases of the respiratory system complicating childbirth; J45.909 Unspecified asthma, uncomplicated; O99.344 Other mental disorders complicating childbirth; F41.8 Other specified anxiety disorders; O16.4 Unspecified maternal hypertension, complicating childbirth; O70.1 Second degree perineal laceration during delivery; Z79.899 Other long term (current) drug therapy
CPT/HCPCS: 36415; 51702; 59300; 59409; 82565; 83615; 84450; 84460; 84520; 84550; 85025; 85027; 86850; 86900; 86901; A9270-GY; J0290; J2590; J3010; J7030; J7120

== ENCOUNTER 2019-09-07 15:21 | Emergency (ER) | payer OTHER, SELFPAY ==
[2019-09-07 15:36] VITALS: BP 131/92
[2019-09-07] MEDS ORDERED: Sodium Chloride 0.9% 10 ML Syringe FLUSH PRN (15:54)
--- NOTE | 2019-09-07 15:57 | EDM.PDOC ---
ED HPI GENERAL MEDICAL PROBLEM - General Chief Complaint: Gastrointestinal Problem Stated Complaint: VOMITING X3 DAYS/19-20 WEEKS Time Seen by Provider: 09/07/19 15:40 Source of Information: Reports: Patient History Limitations: Reports: No Limitations - History of Present Illness INITIAL COMMENTS - FREE TEXT/NARRATIVE: Patient is a 39-year-old female who presents with complaints of nausea,vomiting and diarrhea for 3 days. States that she is feeling faint upon standing. she states that she has about 6 episodes of diarrhea per day and vomits every 2-3 hours. She is able to keep down minimal fluids. She's been sucking on ice chips to try to stay hydrated. Patient states that her , son, and daughter have all been sick with the same symptoms over the last week and that she has the last one to catch it. She does have some generalized abdominal cramping. Patient is approximately 19 weeks . She's had no complications with the thus far. Bilateral Abdomen Pain Score (Numeric/FACES): 3 - Related Data Allergies Allergy/AdvReac Type Severity Reaction Status Date / Time No Known Allergies Allergy Verified 09/07/19 15:36 Home Meds: Home Meds Ondansetron [Zofran ODT] 4 mg PO Q6H PRN #15 tab.dis 09/07/19 [Rx] Pnv No.95/Ferrous Fum/Folic AC [ Caplet] 1 tab PO DAILY 09/07/19 [ History] Sertraline [Zoloft] 50 mg PO DAILY 09/07/19 [History] Past Medical History - Past Health History Medical/Surgical History: Denies Medical/Surgical History Cardiovascular History: Reports: Hypertension Other Cardiovascular History: induced Gastrointestinal History: Reports: GERD Genitourinary History: Reports: None [employer] History: Reports: Psychiatric History: Reports: Anxiety Hematologic History: Reports: Anemia, Other (See Below) Other Hematologic History: - Infectious Disease History Infectious Disease History: Reports: Chicken Pox - Past Surgical History Cardiovascular Surgical History: Reports: None GI Surgical History: Reports: None Female Surgical History: Reports: LEEP, Other (See Below) Other Female Surgeries/Procedures: 2014 Social & Family History - Family History Family Medical History: Noncontributory - Tobacco Use Smoking Status *Q: Never Smoker - Caffeine Use Caffeine Use: Reports: Coffee Other Caffeine Use: 1-2 cups per day - Recreational Drug Use Recreational Drug Use: No ED ROS GENERAL - Review of Systems Review Of Systems: Comprehensive ROS is negative, except as noted in HPI. ED EXAM, GI/ABD - Physical Exam Exam: See Below Exam Limited By: No Limitations General Appearance: Alert, WD/WN, No Apparent Distress Respiratory/Chest: No Respiratory Distress, Lungs Clear, Normal Breath Sounds, No Accessory Muscle Use, Chest Non-Tender Cardiovascular: Normal Peripheral Pulses, Regular Rate, Rhythm, No Edema, No Murmur GI/Abdominal Exam: Normal Bowel Sounds, Soft, Tender (generalized throughout) Neurological: Alert, Oriented, Normal Cognition Psychiatric: Normal Affect, Normal Mood Skin Exam: Warm, Dry, Intact, Normal Color, No Rash Course - Vital Signs Last Recorded V/S: Last Vital Signs Temp 100.1 F 09/07/19 15:32 Pulse 113 H 09/07/19 15:32 Resp 17 09/07/19 15:32 BP 131/92 H 09/07/19 15:32 Pulse Ox 97 09/07/19 15:32 Orthostatic Blood Pressure [ 127/75 Standing] Orthostatic Blood Pressure [ 132/73 Sitting] Orthostatic Blood Pressure [ 137/78 Supine] - Orders/Labs/Meds Orders: Active Orders 24 hr Category Date Time Status Heart Tones [RC] ASDIRECTED Care 09/07/19 15:41 Active Orthostatic Vital Signs [RC] ASDIRECTED Care 09/07/19 15:54 Active Peripheral IV Care [RC] . DIRECTED Care 09/07/19 15:54 Active Sodium Chloride 0.9% [Normal Saline] 1,000 ml Med 09/07/19 16:15 Active IV ASDIRECTED Sodium Chloride 0.9% [Normal Saline] 1,000 ml Med 09/07/19 17:45 Active IV ASDIRECTED Sodium Chloride 0.9% [Saline Flush] Med 09/07/19 15:54 Active 10 ml FLUSH ASDIRECTED PRN Peripheral IV Insertion Adult [OM.PC] Stat Oth 09/07/19 15:54 Ordered Medication Orders Sodium Chloride (Normal Saline) 1,000 mls @ 999 mls/hr IV ASDIRECTED ADRIANNE Last Admin: 09/07/19 17:56 Dose: 999 mls/hr Infusion: 09/07/19 17:26 Dose: 999 mls/hr Admin: 09/07/19 16:25 Dose: 999 mls/hr Sodium Chloride (Normal Saline) 1,000 mls @ 999 mls/hr IV ASDIRECTED ADRIANNE Sodium Chloride (Saline Flush) 10 ml FLUSH ASDIRECTED PRN PRN Reason: Keep Vein Open Last Admin: 09/07/19 16:25 Dose: 10 ml Labs: Laboratory Tests 09/07/19 09/07/19 Range/Units 16:24 16:42 WBC 8.15 (3.98-10.04) K/mm3 RBC 4.77 (3.98-5.22) M/mm3 Hgb 13.0 (11.2-15.7) gm/dl Hct 39.9 (34.1-44.9) % MCV 83.6 (79.4-94.8) fl MCH 27.3 (25.6-32.2) pg MCHC 32.6 (32.2-35.5) g/dl RDW Std Deviation 44.3 (36.4-46.3) fL Plt Count 275 (182-369) K/mm3 MPV 10.1 (9.4-12.3) fl Neut % (Auto) 89.3 H (34.0-71.1) % Lymph % (Auto) 7.0 L (19.3-51.7) % [place] % (Auto) 2.5 L (4.7-12.5) % Eos % (Auto) 1.0 (0.7-5.8) Baso % (Auto) 0.1 (0.1-1.2) % Neut # (Auto) 7.28 H (1.56-6.13) K/mm3 Lymph # (Auto) 0.57 L (1.18-3.74) K/mm3 [place] # (Auto) 0.20 L (0.24-0.36) K/mm3 Eos # (Auto) 0.08 (0.04-0.36) K/mm3 Baso # (Auto) 0.01 (0.01-0.08) K/mm3 Manual Slide Review Abnormal smear Sodium 139 (136-145) mEq/L Potassium 3.0 L (3.5-5.1) mEq/L Chloride 103 (98-107) mEq/L Carbon Dioxide 22 (21-32) mEq/L Anion Gap 17.0 H (5-15) BUN 10 (7-18) mg/dL Creatinine 0.7 (0.55-1.02) mg/dL Est Cr Clr Drug Dosing TNP Estimated GFR (MDRD) > 60 (>60) mL/min BUN/Creatinine Ratio 14.3 (14-18) Glucose 104 (74-106) mg/dL Calcium 8.6 (8.5-10.1) mg/dL Total Bilirubin 1.0 (0.2-1.0) mg/dL AST 21 (15-37) U/L ALT 23 (14-59) U/L Alkaline Phosphatase 57 (46-116) U/L Total Protein 6.7 (6.4-8.2) g/dl Albumin 2.8 L (3.4-5.0) g/dl Globulin 3.9 gm/dL Albumin/Globulin Ratio 0.7 L (1-2) Meds: Medications Generic Name Dose Route Start Last Admin Trade Name Freq PRN Reason Stop Dose Admin Sodium Chloride 1,000 mls @ 999 mls/hr 09/07/19 16:15 09/07/19 17:56 Normal Saline IV 999 mls/hr ASDIRECTED ADRIANNE Administration Sodium Chloride 1,000 mls @ 999 mls/hr 09/07/19 17:45 Normal Saline IV ASDIRECTED ADRIANNE Sodium Chloride 10 ml 09/07/19 15:54 09/07/19 16:25 Saline Flush FLUSH 10 ml ASDIRECTED PRN Administration Keep Vein Open Discontinued Medications Generic Name Dose Route Start Last Admin Trade Name Freq PRN Reason Stop Dose Admin Ondansetron HCl 4 mg 09/07/19 16:01 09/07/19 16:25 Zofran IVPUSH 09/07/19 16:02 4 mg ONETIME ONE Administration Potassium Chloride 40 meq 09/07/19 17:43 09/07/19 17:51 Klor-Con M20 PO 09/07/19 17:44 40 meq ONETIME ONE Administration - Re-Assessments/Exams Free Text/Narrative Re-Assessment/Exam: patient is a 39-year-old female who presents with complaints of 3 day history of nausea, vomiting, and diarrhea. She is approximate 19 weeks . heart tones were normal at 155. Patient states that the rest of her household has also been sick with the same symptoms and that she is last 1 to catch it. I feel it is likely that she is suffering from a viral gastroenteritis as are the other members of her household. We will a do CBC, CMP, orthostatic vital signs. I will order 1 L bolus of normal saline as well as Zofran 4 mg IV. 09/07/19 17:54 Patient's hematology was significant for an anion gap of 17.0 and a potassium of 3.0. She has been drinking water while in the ER and has had no further emesis. We will give her some crackers to eat and then give her 40 meq of KCl by mouth. We'll give her one more bag of normal saline. Plan will be to discharge her home with Zofran on a clear liquid diet. Discharge instructions as noted. Departure - Departure Time of Disposition: 18:27 Disposition: Home, Self-Care 01 Condition: Fair Clinical Impression: Viral gastroenteritis - Discharge Information *PRESCRIPTION DRUG MONITORING PROGRAM REVIEWED*: No *COPY OF PRESCRIPTION DRUG MONITORING REPORT IN PATIENT BUD: No Prescriptions: Ondansetron [Zofran ODT] 4 mg PO Q6H PRN #15 tab.dis PRN Reason: Nausea/Vomiting Instructions: Viral Gastroenteritis, Adult, [id number] Referrals: David Eller MD [Primary Care Provider] - Forms: ED Department Discharge Additional Instructions: You were seen in the emergency Department today for nausea, vomiting, and diarrhea for the last 3 days. You did report that the other members of her family have been sick with similar symptoms. It is likely that you are suffering from a viral gastroenteritis. Your lab work was normal with the exception of a mildly low potassium and evidence of dehydration. You received an oral potassium replacement in the ER as well as 2 liters of IV fluids. We have sent a prescription for [place]fran to [place] [facility]. Use this medication sparingly, as prescribed, for severe nausea only. You may also purchase enedelia supplements to help with her nausea. You can discuss this with the pharmacist as they may have options available for you to purchase. I recommend that you increase your fluids as much as tolerable and maintain a clear liquid diet until symptoms begin to improve. Once you are feeling better , I encourage you to eat potassium-rich foods such as bananas, potatoes, leafy greens and oranges. If you should experience any new or worsening symptoms, please do not hesitate to return to the emergency department. Sepsis Event Note - Evaluation Sepsis Screening Result: No Definite Risk - Focused Exam Vital Signs: Vital Signs Temp Pulse Resp BP Pulse Ox 09/07/19 15:32 100.1 F 113 H 17 131/92 H 97 Date Exam was Performed: 09/07/19 Time Exam was Performed: 18:46 - My Orders Last 24 Hours: My Active Orders 09/07/19 15:41 Heart Tones [RC] ASDIRECTED 09/07/19 15:54 Orthostatic Vital Signs [RC] ASDIRECTED Peripheral IV Care [RC] . DIRECTED Sodium Chloride 0.9% [Saline Flush] 10 ml FLUSH ASDIRECTED PRN Peripheral IV Insertion Adult [OM.PC] Stat 09/07/19 16:15 Sodium Chloride 0.9% [Normal Saline] 1,000 ml IV ASDIRECTED 09/07/19 17:45 Sodium Chloride 0.9% [Normal Saline] 1,000 ml IV ASDIRECTED - Assessment/Plan Last 24 Hours: My Active Orders 09/07/19 15:41 Heart Tones [RC] ASDIRECTED 09/07/19 15:54 Orthostatic Vital Signs [RC] ASDIRECTED Peripheral IV Care [RC] . DIRECTED Sodium Chloride 0.9% [Saline Flush] 10 ml FLUSH ASDIRECTED PRN Peripheral IV Insertion Adult [OM.PC] Stat 09/07/19 16:15 Sodium Chloride 0.9% [Normal Saline] 1,000 ml IV ASDIRECTED 09/07/19 17:45 Sodium Chloride 0.9% [Normal Saline] 1,000 ml IV ASDIRECTED
[2019-09-07] MEDS ORDERED: Ondansetron 4 MG/2 ML SDV IVPUSH ONE (16:01)
[2019-09-07] MEDS: Sodium Chloride 0.9% 1,000 ML IV SCH ×2 (16:25→17:56)
[2019-09-07] MEDS ORDERED: Potassium Chloride 20 MEQ Tab.ER PO ONE (17:43)
[2019-09-07] MEDS ORDERED: Sodium Chloride 0.9% 1,000 ML IV SCH (17:45)
[2019-09-07 19:20] VITALS: PULSE 98
== END 2019-09-07 19:06 | disposition home or self-care (01) ==
LOC: JD.ED 15:21
DX: A08.4 Viral intestinal infection, unspecified (principal); I10 Essential (primary) hypertension; F41.9 Anxiety disorder, unspecified; Z79.899 Other long term (current) drug therapy
CPT/HCPCS: 36415; 80053; 85025; 96361; 96374; 99284; A9270; J2405; J7030; 99283

== ENCOUNTER 2020-01-10 13:13 | Inpatient (IN) | payer OTHER ==
[2020-01-10] MEDS ORDERED: fentaNYL 100 MCG/2 ML SDV EPIDUR PRN (13:26)
[2020-01-10] MEDS ORDERED: ePHEDrine 50 MG/ML SDV IVPUSH PRN (13:26)
[2020-01-10] MEDS ORDERED: diphenhydrAMINE 50 MG/ML SDV IVPUSH PRN (13:26)
[2020-01-10] MEDS ORDERED: Sodium Chloride 0.9% 10 ML Syringe FLUSH PRN (13:54)
[2020-01-10] MEDS ORDERED: Nalbuphine 10 MG/ML Syringe IVPUSH PRN (13:54)
[2020-01-10] MEDS ORDERED: Ondansetron 4 MG/2 ML SDV IVPUSH PRN (13:54)
[2020-01-10] MEDS ORDERED: Oxytocin/Lactated Ringers 10 UNIT/1,000 ML BAG IV SCH ×2 (14:00)
[2020-01-10] MEDS: Lactated Ringers 1,000 ML IV SCH ×5 (16:39→23:18)
[2020-01-10] MEDS ORDERED: Lidocaine 1% 50 ML MDV INJECT ONE (18:00)
[2020-01-10] MEDS: Bupivacaine/fentaNYL/NS 100 ML Bag EPIDUR PRN (20:03)
--- NOTE | 2020-01-10 20:39 | PCM.PREANE ---
Preanesthetic Assessment - Procedure Proposed Procedure: epidural - Anesthesia/Transfusion/Family Hx Anesthesia History: Prior Anesthesia Without Reaction Family History of Anesthesia Reaction: No Transfusion History: No Prior Transfusion(s) - Review of Systems General: Fatigue Pulmonary: No Symptoms Cardiovascular: No Symptoms Gastrointestinal: Abdominal Pain (labor) Neurological: No Symptoms Other: Reports: Diabetes (gestational), Anxiety - Physical Assessment Vital Signs: Last Vital Signs Temp 37.0 C 01/10/20 13:28 Pulse 98 01/10/20 13:28 Resp 15 01/10/20 13:28 BP 147/87 H 01/10/20 13:28 Pulse Ox 98 01/10/20 13:28 Height: 1.78 m Weight: 150.321 kg ASA Class: 2 Mental Status: Alert & Oriented x3 Airway Class: Mallampati = 1 Dentition: Reports: Normal Dentition Thyro-Mental Finger Breadths: 3 Mouth Opening Finger Breadths: 3 ROM/Head Extension: Full Lungs: Clear to Auscultation, Normal Respiratory Effort Cardiovascular: Regular Rate, Regular Rhythm - Lab Values: Laboratory Last Values WBC 8.69 K/mm3 (3.98-10.04) 01/10/20 14:10 RBC 4.38 M/mm3 (3.98-5.22) 01/10/20 14:10 Hgb 12.1 gm/dl (11.2-15.7) 01/10/20 14:10 Hct 37.5 % (34.1-44.9) 01/10/20 14:10 MCV 85.6 fl (79.4-94.8) 01/10/20 14:10 MCH 27.6 pg (25.6-32.2) 01/10/20 14:10 MCHC 32.3 g/dl (32.2-35.5) 01/10/20 14:10 RDW Std Deviation 46.2 fL (36.4-46.3) 01/10/20 14:10 Plt Count 259 K/mm3 (182-369) 01/10/20 14:10 MPV 10.4 fl (9.4-12.3) 01/10/20 14:10 Neut % (Auto) 74.4 % (34.0-71.1) H 01/10/20 14:10 Lymph % (Auto) 15.9 % (19.3-51.7) L 01/10/20 14:10 [place] % (Auto) 7.6 % (4.7-12.5) 01/10/20 14:10 Eos % (Auto) 1.8 (0.7-5.8) 01/10/20 14:10 Baso % (Auto) 0.1 % (0.1-1.2) 01/10/20 14:10 Neut # (Auto) 6.46 K/mm3 (1.56-6.13) H 01/10/20 14:10 Lymph # (Auto) 1.38 K/mm3 (1.18-3.74) 01/10/20 14:10 [place] # (Auto) 0.66 K/mm3 (0.24-0.36) H 01/10/20 14:10 Eos # (Auto) 0.16 K/mm3 (0.04-0.36) 01/10/20 14:10 Baso # (Auto) 0.01 K/mm3 (0.01-0.08) 01/10/20 14:10 Blood Type A POSITIVE 01/10/20 14:10 Gel Antibody Screen Negative 01/10/20 14:10 - Allergies Allergies/Adverse Reactions: Allergies Allergy/AdvReac Type Severity Reaction Status Date / Time No Known Allergies Allergy Verified 01/10/20 13:58 - Anesthesia Plan Pre-Op Medication Ordered: None - Acknowledgements Anesthesia Type Planned: Epidural Pt an Appropriate Candidate for the Planned Anesthesia: Yes Alternatives and Risks of Anesthesia Discussed w Pt/Guardian: Yes Pt/Guardian Understands and Agrees with Anesthesia Plan: Yes PreAnesthesia Questionnaire - Past Health History Medical/Surgical History: Denies Medical/Surgical History HEENT History: Reports: Impaired Vision Other HEENT History: Wears glasses Cardiovascular History: Reports: Hypertension, Other (See Below) Other Cardiovascular History: induced hypertention. 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: Psychiatric History: Reports: Anxiety Endocrine/Metabolic History: Reports: Diabetes, Gestational, Hypothyroidism, Obesity/BMI 30+ Hematologic History: Reports: Anemia, Other (See Below) Other Hematologic History: - Infectious Disease History Infectious Disease History: Reports: Chicken Pox - Past Surgical History HEENT Surgical History: Reports: None Cardiovascular Surgical History: Reports: None GI Surgical History: Reports: None Female Surgical History: Reports: LEEP, Other (See Below) Other Female Surgeries/Procedures: 2014 Endocrine Surgical History: Reports: None - SUBSTANCE USE Smoking Status *Q: Former Smoker Tobacco Use Within Last Twelve Months: No Recreational Drug Use History: No - HOME MEDS Home Medications: Home Meds Pnv No.95/Ferrous Fum/Folic AC [ Caplet] 1 tab PO DAILY 09/07/19 [ History] Sertraline [Zoloft] 50 mg PO DAILY 09/07/19 [History] Levothyroxine Sodium [Levoxyl] 50 mcg PO DAILY 01/10/20 [History] glyBURIDE [Glyburide] 5 mg PO BEDTIME 01/10/20 [History] - CURRENT (IN HOUSE) MEDS Current Meds: Current Medications Diphenhydramine HCl (Benadryl) 25 mg IVPUSH Q6H PRN PRN Reason: pruritis Ephedrine Sulfate (Ephedrine Sulfate) 5 mg IVPUSH ASDIRECTED PRN PRN Reason: Hypotension Fentanyl (Sublimaze) 100 mcg EPIDUR Q3H PRN PRN Reason: Pain Last Admin: 01/10/20 20:03 Dose: 100 mcg Fentanyl/Bupivacaine HCl (Fentanyl/Bupivacaine/Ns 2 Mcg-0.125% 100 Ml) 100 ml EPIDUR ASDIRECTED PRN PRN Reason: Pain Last Admin: 01/10/20 20:03 Dose: 100 ml Lactated Ringer's (Ringers, Lactated) 1,000 mls @ 100 mls/hr IV ASDIRECTED ADRIANNE Last Admin: 01/10/20 16:39 Dose: 100 mls/hr Oxytocin/Lactated Ringer's (Pitocin In Lr 10 Units/1,000 Ml) 10 unit in 1,000 mls @ 500 mls/hr IV .CONTINUOUS ADRIANNE Oxytocin/Lactated Ringer's (Pitocin In Lr 10 Units/1,000 Ml) 10 unit in 1,000 mls @ 12 mls/hr IV TITRATE ADRIANNE; Protocol Nalbuphine HCl (Nubain) 10 mg IVPUSH Q2H PRN PRN Reason: Pain Ondansetron HCl (Zofran) 4 mg IVPUSH Q4H PRN PRN Reason: Nausea/Vomiting Sodium Chloride (Saline Flush) 10 ml FLUSH ASDIRECTED PRN PRN Reason: Keep Vein Open Discontinued Medications Lidocaine HCl (Xylocaine 1%) 50 ml INJECT ONETIME ONE Stop: 01/10/20 18:01
--- NOTE | 2020-01-10 20:43 | PCM.LDHP ---
L&D History of Present Illness - General Date of Service: 01/10/20 Admit Problem/Dx: Patient Status Order with Admit Dx/Problem 01/10/20 13:15 Patient Status [ADT] Routine 01/10/20 13:54 Patient Status [ADT] Routine Admission Diagnosis/Problem Admission Diagnosis/Problem 01/10/20 20:32 Nae is a 39-year-old 3 para 1103 (twins 1) presently at 36-6/7 weeks gestational age with an DONTAE of 02/01/2020 who was admitted on a.m. of 01/10/2020 with SROM with resultant clear amniotic fluid. Source of Information: Patient History Limitations: Reports: No Limitations - History of Present Illness Introduction:: Nae is a 39-year-old 3 para 1103 (twins 1) presently at 36-6/7 weeks gestational age with an DONTAE of 02/01/2020 who was admitted on the afternoon of with SROM with resultant clear amniotic fluid.She reports she had spontaneous rupture membranes at approximately 1230 hrs. on 01/10/2020. Is not having any significant contractions. The baby has been active. She's had grossly age of clear fluid. 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 This is supported by multiple ultrasounds during the course the . Her menarche was at age 14. Cycles every 30 days. She has normal monthly cycles. Last menstrual cycle was a relatively unknown. Her previous obstetric history includes the followin. Female infant born 01/09/2000 at 42 weeks gestational age after 5 hours of labor. 8 lbs. 5 oz. infant born via . Had epidural for pain control delivered in [place]. Child's name is Alina 2. Twins born on 08/07/2017 at 36-1/7 weeks gestational age. Both male infants with twin A weighing 4 lbs. 3 oz. and twin B weighing 4 lbs. 14 oz. Delivered via vacuum extraction delivery. Patient epidural. Delivered at [facility]. course: Patient's first visit was at the time of her ultrasound on 06/30/2019. care officially started with her first regular visit on 07/12/2019 at 10 weeks and 6 days. She seen on a regular basis throughout the . Weight gain was from 312.6 pounds to 327 pounds for an 11 pound increase. Her vital signs remained stable throughout the course. Her fundal height growth was hard to assess because of patient's body habitus and increased weight. She had an abnormal TSH and presently is on levothyroxine 50 g per day. She's had some anxiety and depression concerns and presently is on sertraline during the course of the . She has history of gestational diabetes and has been on glyburide 5 mg by mouth every at at bedtime. Her compliance with blood glucose evaluation has been less than optimal. Her group B strep screen is negative. She has a history of loop electrical surgical excision procedure done 09/28/2019. She's been having weekly biophysical profiles to evaluate well-being. They have been normal. Laboratory testing and shows blood to be a positive with a negative antibody screen. Hemoglobin is 12.6 g/dL. Platelets are 311,000. Rubella titer shows immunity. RPR is nonreactive. Urine culture is unremarkable. Genetic screening was not done. TSH on evaluation 07/12/2019 was normal at 2.7 mU/ liter. Second trimester labs showed a hemoglobin of 12.0 g/dL and platelets of 312,000. Her 1 hour glucose test was 150. Her throat glucose test was abnormal with a fasting blood sugar of 98, 1 hour glucose of 217, a 2 hour glucose of 192 and a 3 hour glucose of 77. RPR done on 10/23/2019 was nonreactive. She is group B strep negative. Allergies: Seasonal allergies only. No known drug allergies Medications: 1. Glyburide 5 mg by mouth at bedtime 2. Sertraline HCL 50 mg by mouth daily 3. Levothyroxine 50 g by mouth daily 4. vitamins 1 by mouth daily Past medical history: 1. Vaginal delivery 2-baum 1 and twins 1. 2. History of abnormal Pap smear status post LEEP. 3. Seasonal allergies with some asthma related to this. Has used a rescue inhaler in the past. 4. Hypothyroidism on thyroid replacement 5. Gestational diabetes 6. Anxiety on medications Past surgical history: 1. LEEP done in 2013 for history of MOHINI-3. Family history: No anesthesia, bleeding, blood clotting problems in the family. No prints related problems noted. Social history: Patient is . She is not using any significant amounts of alcohol, drugs or tobacco. She is a college graduate. is [employer]. Review of systems: In general patient has no complaints other than loss of vaginal fluid. She is not ralph upon admission and she does report good activity.. Skin: Negative Lungs: No infectious symptoms or shortness of breath Cardiovascular: No chest pain or exercise intolerance Breasts: changes. GI: Negative : changes Musculoskeletal: Negative Neurological: Negative In general the patient is well-developed, well-nourished, pleasant female of stated age in no acute distress. Skin is warm dry without lesions. HEENT, neck and back within normal limits. Lungs are clear with good breath sounds in all lung anand. Cardiovascular exam shows regular and rhythm without murmurs. Breast exam deferred done at first visit found to be normal and is not repeated at this time. Abdomen is gravid. Last fundal height was 42 cm. Very hard to evaluate because of patient's body habitus and weight. Genital per digital exam shows cervix to be closed, 20% effaced, soft, mid position, -3 or above. Presenting part is confirmed with bedside ultrasound.. Extremities and neurological exam are grossly within normal limits. Pain Score: 6 - Related Data Allergies/Adverse Reactions: Allergies Allergy/AdvReac Type Severity Reaction Status Date / Time No Known Allergies Allergy Verified 01/10/20 13:58 Home Medications: Home Meds Pnv No.95/Ferrous Fum/Folic AC [ Caplet] 1 tab PO DAILY 09/07/19 [ History] Sertraline [Zoloft] 50 mg PO DAILY 09/07/19 [History] Levothyroxine Sodium [Levoxyl] 50 mcg PO DAILY 01/10/20 [History] glyBURIDE [Glyburide] 5 mg PO BEDTIME 01/10/20 [History] Past Medical History - Past Health History Medical/Surgical History: Denies Medical/Surgical History HEENT History: Reports: Impaired Vision Other HEENT History: Wears glasses Cardiovascular History: Reports: Hypertension, Other (See Below) Other Cardiovascular History: induced hypertention. Pt states she has a "flutter" that she feels sometimes, seen by MD, no order for meds or any noted problem with it Gastrointestinal History: Reports: GERD Genitourinary History: Reports: None BOOKBINDER CHIEF History: Reports: Psychiatric History: Reports: Anxiety Endocrine/Metabolic History: Reports: Diabetes, Gestational, Hypothyroidism, Obesity/BMI 30+ Hematologic History: Reports: Anemia, Other (See Below) Other Hematologic History: - Infectious Disease History Infectious Disease History: Reports: Chicken Pox - Past Surgical History HEENT Surgical History: Reports: None Cardiovascular Surgical History: Reports: None GI Surgical History: Reports: None Female Surgical History: Reports: LEEP, Other (See Below) Other Female Surgeries/Procedures: 2015 Endocrine Surgical History: Reports: None Social & Family History - Family History Family Medical History: Noncontributory - Tobacco Use Smoking Status *Q: Former Smoker Years of Tobacco use: 10 Packs/Tins Daily: 1 Used Tobacco, but Quit: Yes Month/Year Tobacco Last Used: 2006 - Caffeine Use Caffeine Use: Reports: Coffee Other Caffeine Use: 1-2 cups per day - Recreational Drug Use Recreational Drug Use: No H&P Review of Systems - Review of Systems: Review Of Systems: See Below L&D Exam - Exam Exam: See Below - Vital Signs Vital Signs: Last Vital Signs Temp 37.0 C 01/10/20 13:28 Pulse 98 01/10/20 13:28 Resp 15 01/10/20 13:28 BP 147/87 H 01/10/20 13:28 Pulse Ox 98 01/10/20 13:28 Weight: 150.321 kg - Patient Data Lab Results Last 24 hrs: Laboratory Results - last 24 hr 01/10/20 01/10/20 Range/Units 14:10 14:10 WBC 8.69 (3.98-10.04) K/mm3 RBC 4.38 (3.98-5.22) M/mm3 Hgb 12.1 (11.2-15.7) gm/dl Hct 37.5 (34.1-44.9) % MCV 85.6 (79.4-94.8) fl MCH 27.6 (25.6-32.2) pg MCHC 32.3 (32.2-35.5) g/dl RDW Std Deviation 46.2 (36.4-46.3) fL Plt Count 259 (182-369) K/mm3 MPV 10.4 (9.4-12.3) fl Neut % (Auto) 74.4 H (34.0-71.1) % Lymph % (Auto) 15.9 L (19.3-51.7) % [place] % (Auto) 7.6 (4.7-12.5) % Eos % (Auto) 1.8 (0.7-5.8) Baso % (Auto) 0.1 (0.1-1.2) % Neut # (Auto) 6.46 H (1.56-6.13) K/mm3 Lymph # (Auto) 1.38 (1.18-3.74) K/mm3 [place] # (Auto) 0.66 H (0.24-0.36) K/mm3 Eos # (Auto) 0.16 (0.04-0.36) K/mm3 Baso # (Auto) 0.01 (0.01-0.08) K/mm3 Blood Type A POSITIVE Gel Antibody Screen Negative Result Diagrams: 01/10/20 14:10 Problem List Initiated/Reviewed/Updated: Yes Orders Last 24hrs: Active Orders 24 hr Category Date Time Status Patient Status [ADT] Routine ADT 01/10/20 13:54 Active Activity as Tolerated [RC] PFP Care 01/10/20 13:54 Active Communication Order [RC] ASDIRECTED Care 01/10/20 13:27 Active Cooling Warming Measures [RC] ASDIRECTED Care 01/10/20 13:27 Active Notify Provider [RC] ASDIRECTED Care 01/10/20 13:26 Active Oxygen Therapy [RC] ASDIRECTED Care 01/10/20 13:27 Active Peripheral IV Care [RC] . DIRECTED Care 01/10/20 13:54 Active Pulse Oximetry [RC] ASDIRECTED Care 01/10/20 13:27 Active Vital Signs [RC] ASDIRECTED Care 01/10/20 13:27 Active Vital Signs [RC] PER UNIT ROUTINE Care 01/10/20 13:15 Active Vital Signs [RC] PER UNIT ROUTINE Care 01/10/20 13:54 Active Regular Diet [DIET] Diet 01/10/20 Dinner Active RAPID PLASMA REAGIN,RPR [CHEM] Routine Lab 01/10/20 14:10 Received Bupivacaine/fentaNYL/NS [fentaNYL/Bupivacaine/NS 2 MCG- Med 01/10/20 13:26 Active 0.125% 100 ML] 100 ml EPIDUR ASDIRECTED PRN Lactated Ringers [Ringers, Lactated] 1,000 ml Med 01/10/20 14:00 Active IV ASDIRECTED Nalbuphine [Nubain] Med 01/10/20 13:54 Active 10 mg IVPUSH Q2H PRN Ondansetron [Zofran] Med 01/10/20 13:54 Active 4 mg IVPUSH Q4H PRN Oxytocin/Lactated Ringers [Pitocin in LR 10 Units/1,000 Med 01/10/20 14:00 Active ML] 10 unit in 1,000 ml IV .CONTINUOUS Oxytocin/Lactated Ringers [Pitocin in LR 10 Units/1,000 Med 01/10/20 14:00 Active ML] 10 unit in 1,000 ml IV TITRATE Sodium Chloride 0.9% [Saline Flush] Med 01/10/20 13:54 Active 10 ml FLUSH ASDIRECTED PRN diphenhydrAMINE [Benadryl] Med 01/10/20 13:26 Active 25 mg IVPUSH Q6H PRN ePHEDrine [ePHEDrine sulfate] Med 01/10/20 13:26 Active 5 mg IVPUSH ASDIRECTED PRN fentaNYL [Sublimaze] Med 01/10/20 13:26 Active 100 mcg EPIDUR Q3H PRN Electronic Heart Tones Ext w TOCO [WOMSER] Oth 01/10/20 13:54 Ordered Routine Electronic Heart Tones Internal [WOMSER] Per Unit Oth 01/10/20 13:54 Ordered Routine Peripheral IV Insertion Adult [OM.PC] Routine Oth 01/10/20 13:54 Ordered Resuscitation Status Routine Resus Stat 01/10/20 13:15 Ordered Medication Orders Diphenhydramine HCl (Benadryl) 25 mg IVPUSH Q6H PRN PRN Reason: pruritis Ephedrine Sulfate (Ephedrine Sulfate) 5 mg IVPUSH ASDIRECTED PRN PRN Reason: Hypotension Fentanyl (Sublimaze) 100 mcg EPIDUR Q3H PRN PRN Reason: Pain Last Admin: 01/10/20 20:03 Dose: 100 mcg Fentanyl/Bupivacaine HCl (Fentanyl/Bupivacaine/Ns 2 Mcg-0.125% 100 Ml) 100 ml EPIDUR ASDIRECTED PRN PRN Reason: Pain Last Admin: 05/20/20 20:03 Dose: 100 ml Lactated Ringer's (Ringers, Lactated) 1,000 mls @ 100 mls/hr IV ASDIRECTED ADRIANNE Last Admin: 01/10/20 16:39 Dose: 100 mls/hr Oxytocin/Lactated Ringer's (Pitocin In Lr 10 Units/1,000 Ml) 10 unit in 1,000 mls @ 500 mls/hr IV .CONTINUOUS ADRIANNE Oxytocin/Lactated Ringer's (Pitocin In Lr 10 Units/1,000 Ml) 10 unit in 1,000 mls @ 12 mls/hr IV TITRATE ADRIANNE; Protocol Nalbuphine HCl (Nubain) 10 mg IVPUSH Q2H PRN PRN Reason: Pain Ondansetron HCl (Zofran) 4 mg IVPUSH Q4H PRN PRN Reason: Nausea/Vomiting Sodium Chloride (Saline Flush) 10 ml FLUSH ASDIRECTED PRN PRN Reason: Keep Vein Open Assessment/Plan Comment:: 1.36-6/7 weeks gestational age with SROM and possible early labor. 2. Group B strep screen negative 3. Risk factors for the including increased weight, gestational diabetes, hypothyroidism. 4. Patient had her influenza shot on 06/05/2019. Her T dap was given on 2019. She is rubella immune. She had her hepatitis B immunizations in 2019. I. Patient desires epidural in labor and delivery 6. History of LEEP 2019. Plan: 1. Anticipate normal spontaneous vaginal delivery. The patient is not ralph well within the next 6 hours May off to the patient augmentation with Pitocin to increase likelihood of delivery prior to 24 hours after SROM 2. Epidural when necessary per patient desire 3. CBC and RPR on admission per protocol 4. Utilizing IUPC and scalp electrode as indicated. Until and intermittent monitoring as indicated. 5. Continue thyroid medication after surgery
[2020-01-10] MEDS ORDERED: Sertraline 25 MG Tab PO ONE (22:15)
[2020-01-11] MEDS ORDERED: ePHEDrine Sulfate/0.9% NaCl/Pf 25 MG/5 ML SYRINGE IV ONE
[2020-01-11] MEDS ORDERED: Bupivacaine 0.25% 10 ML SDV ONE
[2020-01-11] MEDS: Bupivacaine/fentaNYL/NS 100 ML Bag EPIDUR PRN (04:31)
--- NOTE | 2020-01-11 07:05 | PCM.SN.2 ---
- Free Text/Narrative Note: Delivery note: Nae is a 39-year-old 3 para 1103 (twins 1) presently at 36-6/7 weeks gestational age with an DONTAE of 02/01/2020 who was admitted on a.m. of 01/10/2020 with SROM with resultant clear amniotic fluid.Patient was allowed to labor naturally for presently 6-8 hours at which time she was noted to be in a less than optimal labor pattern. Patient had Pitocin augmentation from that point on. She underwent epidural for labor analgesia with good results. She progressed slowly and steadily to complete cervical dilation by approximately 0515 hrs. on 01/11/2020. Patient pushed for approximately 45 minutes and delivered a viable, baum, female infant with Apgars of 8 and 9, length of 20.5 inches, a weight of 3280 g (7 pounds 3.7 ounces) over an intact perineum in a direct occiput anterior at 0604 hrs. on 01/11/2020. Baby's name is Nicol Rodrigues. There was a nuchal cord/shoulder cord 1 which was loose and was reduced over the baby's body. The baby was placed on mom's abdomen. Pitocin was increased to 500 mL per hour to facilitate increase in uterine tone and decrease likelihood of bleeding. The umbilical cord was locked pulsate for 2-3 minutes. It was then clamped 2 and cut by the baby's father David. Cord blood was obtained. The umbilical cord had 3 vessels present. Perineum was found to be intact. No suturing was required. The placenta delivered at 0609 hrs. in a Gonzalez presentation. It appeared intact and complete and was discarded per patient desire. Estimated blood loss was approximately 300 mL. Patient plans to breast-feed. Condition: Good.
[2020-01-11] MEDS ORDERED: Acetaminophen 325 MG Tab PO PRN (07:29)
[2020-01-11] MEDS ORDERED: Docusate Sodium 100 MG Cap PO PRN (07:29)
[2020-01-11] MEDS ORDERED: Benzocaine/Menthol 20%-0.5% Spray 56 GM Canister TOP PRN (07:29)
[2020-01-11] MEDS ORDERED: Witch Hazel Medicated Pads 40/Jar TOP PRN (07:29)
[2020-01-11] MEDS ORDERED: Sertraline 50 MG Tab PO SCH ×2 (09:00→21:00)
[2020-01-11] MEDS: Prenatal Multivitamin with Calcium/Folic Acid/Iron Tab PO SCH (09:13)
[2020-01-11] MEDS: Levothyroxine 50 MCG Tab PO SCH (09:13)
[2020-01-11] MEDS: Ibuprofen 800 MG Tab PO PRN ×2 (13:14→18:59)
[2020-01-11] MEDS ORDERED: Sertraline 25 MG Tab PO ONE (21:42)
[2020-01-12] MEDS: Ibuprofen 800 MG Tab PO PRN (04:01)
--- NOTE | 2020-01-12 07:51 | PCM48HPAN ---
Post Anesthesia Note - EVALUATION WITHIN 48HRS OF ANESTHETIC Vital Signs in Normal Range: Yes Patient Participated in Evaluation: Yes Respiratory Function Stable: Yes Airway Patent: Yes Cardiovascular Function Stable: Yes Hydration Status Stable: Yes Pain Control Satisfactory: Yes Nausea and Vomiting Control Satisfactory: Yes Mental Status Recovered: Yes Vital Signs: Last Vital Signs Temp 36.9 C 01/12/20 04:05 Pulse 68 01/12/20 04:05 Resp 15 01/12/20 04:05 BP 131/77 01/12/20 04:05 Pulse Ox 98 01/12/20 04:05
[2020-01-12] MEDS: Prenatal Multivitamin with Calcium/Folic Acid/Iron Tab PO SCH (08:33)
[2020-01-12] MEDS: Levothyroxine 50 MCG Tab PO SCH (08:33)
--- NOTE | 2020-01-12 09:59 | PCM.SN.2 ---
- Free Text/Narrative Note: note: Patient is doing well in the period. Minimal lochia, voiding well, ambulated without problems. Nursing without concerns. Patient is afebrile, vital signs are stable Abdomen is flat, soft, uterus is below the umbilicus and is firm and nontender. Legs are nontender. Assessment: recovery going well. Plan: Routine care. Patient be discharged home within the next 24-48 hours.
--- NOTE | 2020-01-12 10:04 | PCM.DCSUM1 ---
Discharge Summary - Hospital Course Free Text/Narrative:: Nae is a 39-year-old 3 para 1103 (twins 1) presently at 36-6/7 weeks gestational age with an DONTAE of 02/01/2020 who was admitted on a.m. of 01/10/2020 with SROM with resultant clear amniotic fluid.Patient was allowed to labor naturally for presently 6-8 hours at which time she was noted to be in a less than optimal labor pattern. Patient had Pitocin augmentation from that point on. She underwent epidural for labor analgesia with good results. She progressed slowly and steadily to complete cervical dilation by approximately 0515 hrs. on 01/11/2020. Patient pushed for approximately 45 minutes and delivered a viable, baum, female infant with Apgars of 8 and 9, length of 20.5 inches, a weight of 3280 g (7 pounds 3.7 ounces) over an intact perineum in a direct occiput anterior at 0604 hrs. on 01/11/2020. Baby's name is Nicol Rodrigues. There was a nuchal cord/shoulder cord 1 which was loose and was reduced over the baby's body. The baby was placed on mom's abdomen. Pitocin was increased to 500 mL per hour to facilitate increase in uterine tone and decrease likelihood of bleeding. The umbilical cord was locked pulsate for 2-3 minutes. It was then clamped 2 and cut by the baby's father David. Cord blood was obtained. The umbilical cord had 3 vessels present. Perineum was found to be intact. No suturing was required. The placenta delivered at 0609 hrs. in a Gonzalez presentation. It appeared intact and complete and was discarded per patient desire. Estimated blood loss was approximately 300 mL. Patient plans to breast-feed. patient is unwell. She has minimal lochia, was ambulating well, voiding without problems and is nursing without concerns. Patient is desiring discharge home. Condition: Good. Diagnosis: Stroke: No - Discharge Data Discharge Date: 01/12/20 Discharge Disposition: Home, Self-Care 01 Condition: Good - Referral to Home Health Primary Care Physician: David Eller MD - Patient Instructions Diet: Regular Diet as Tolerated (Nursing diet with increased calcium and calories as directed) Activity: As Tolerated (No intercourse or tampons until bleeding resolves) Driving: May Drive Today Showering/Bathing: May Shower (may take a bath) Notify Provider of: Fever, Increased Pain, Swelling and Redness, Nausea and/or Vomiting - Discharge Plan Home Medications: Home Meds Pnv No.95/Ferrous Fum/Folic AC [ Caplet] 1 tab PO DAILY 09/07/19 [ History] Sertraline [Zoloft] 50 mg PO DAILY 09/07/19 [History] Levothyroxine Sodium [Levoxyl] 50 mcg PO DAILY 01/10/20 [History] Acetaminophen [Tylenol] 650 mg PO Q4H PRN tablet 01/12/20 [Rx] Ibuprofen [Motrin] 800 mg PO Q6H PRN tablet 01/12/20 [Rx] Referrals: David Eller MD [Primary Care Provider] - (Please have patient make it to a health appointment for 2 weeks .) - Discharge Summary/Plan Comment DC Time >30 min.: No Discharge Summary/Plan Comment: Discharge instructions: 1. Discharge home 2. Diet, activity and follow-up discussed with patient. Recommend nursing diet with increased calories and calcium. 3. Precautions given concern increased pain, bleeding, temperature, signs/ symptoms of DVT/PE. 4. Medications per home medication was printed, discussed with and given to the patient. 5. Patient to call for a [facility] appointment for 2 weeks .. Diagnosis: Term -delivered Condition: Good - Patient Data Vitals - Most Recent: Last Vital Signs Temp 36.6 C 01/12/20 09:00 Pulse 69 01/12/20 09:00 Resp 16 01/12/20 09:00 BP 130/89 01/12/20 09:00 Pulse Ox 98 01/12/20 09:00 Weight - Most Recent: 150.321 kg Med Orders - Current: Current Medications Acetaminophen (Tylenol) 650 mg PO Q4H PRN PRN Reason: mild pain or fever Benzocaine/Menthol (Dermoplast Pain Relief Lula) 0 gm TOP ASDIRECTED PRN PRN Reason: Perineal Comfort Measure Docusate Sodium (Colace) 100 mg PO BID PRN PRN Reason: Constipation Last Admin: 01/12/20 08:33 Dose: 100 mg Ibuprofen (Motrin) 800 mg PO Q6H PRN PRN Reason: Mild pain or fever Last Admin: 05/22/20 04:01 Dose: 800 mg Levothyroxine Sodium (Synthroid) 50 mcg PO DAILY ADRIANNE Last Admin: 01/12/20 08:33 Dose: 50 mcg Prenat Multivit/Aba Therapist/Iron/Folic Ac ( Plus Iron) 1 each PO DAILY ADRIANNE Last Admin: 01/12/20 08:33 Dose: 1 each Sertraline HCl (Zoloft) 50 mg PO Q24H ADRIANNE Last Admin: 01/11/20 20:05 Dose: 50 mg Witch Vicky (Tucks) 1 pad TOP ASDIRECTED PRN PRN Reason: Perineal Comfort Measure Discontinued Medications Bupivacaine HCl (Sensorcaine-Mpf 0.25%) 10 ml .ROUTE .STExTractApps-MED ONE Stop: 01/11/20 00:01 Diphenhydramine HCl (Benadryl) 25 mg IVPUSH Q6H PRN PRN Reason: pruritis Ephedrine Sulfate (Ephedrine Sulfate) 5 mg IVPUSH ASDIRECTED PRN PRN Reason: Hypotension Ephedrine Sulfate (Ephedrine 25 Mg/5 Ml Syringe) 25 mg IV .STK-MED ONE Stop: 01/11/20 00:01 Fentanyl (Sublimaze) 100 mcg EPIDUR Q3H PRN PRN Reason: Pain Last Admin: 01/10/20 20:03 Dose: 100 mcg Fentanyl/Bupivacaine HCl (Fentanyl/Bupivacaine/Ns 2 Mcg-0.125% 100 Ml) 100 ml EPIDUR ASDIRECTED PRN PRN Reason: Pain Last Admin: 01/11/20 04:31 Dose: 100 ml Lactated Ringer's (Ringers, Lactated) 1,000 mls @ 100 mls/hr IV ASDIRECTED ADRIANNE Last Admin: 01/10/20 23:18 Dose: 100 mls/hr Oxytocin/Lactated Ringer's (Pitocin In Lr 10 Units/1,000 Ml) 10 unit in 1,000 mls @ 500 mls/hr IV .CONTINUOUS ADRIANNE Last Admin: 01/11/20 06:20 Dose: 500 mls/hr Oxytocin/Lactated Ringer's (Pitocin In Lr 10 Units/1,000 Ml) 10 unit in 1,000 mls @ 12 mls/hr IV TITRATE ADRIANNE; Protocol Last Titration: 01/11/20 03:37 Dose: 20 munits/min, 120 mls/hr Lidocaine HCl (Xylocaine 1%) 50 ml INJECT ONETIME ONE Stop: 01/10/20 18:01 Last Admin: 01/11/20 22:53 Dose: Not Given Nalbuphine HCl (Nubain) 10 mg IVPUSH Q2H PRN PRN Reason: Pain Ondansetron HCl (Zofran) 4 mg IVPUSH Q4H PRN PRN Reason: Nausea/Vomiting Last Admin: 01/10/20 20:47 Dose: 4 mg Sertraline HCl (Zoloft) 25 mg PO ONETIME ONE Stop: 01/11/20 21:43 Sertraline HCl (Zoloft) 25 mg PO ONETIME ONE Stop: 01/10/20 22:16 Last Admin: 01/10/20 22:15 Dose: 25 mg Sertraline HCl (Zoloft) 50 mg PO DAILY ADRIANNE Sodium Chloride (Saline Flush) 10 ml FLUSH ASDIRECTED PRN PRN Reason: Keep Vein Open
[2020-01-12 12:49] VITALS: BP 142/71; PULSE 85
== END 2020-01-12 12:45 | disposition home or self-care (01) | DRG 807 ==
LOC: JD.OB 13:13 → JD.OBCHECK 13:13 → JD.OB 13:54 → OBSVTOIN 01-11 06:04 → JD.OB 01-11 06:05
PROVIDERS: ADMIT Obstetrics & Gynecology; ATTEND Obstetrics & Gynecology
PROC: 10E0XZZ Delivery of Products of Conception, External Approach (ICD-10-PCS; principal; 2020-01-11)
PROC: 3E0R3BZ Introduction of Anesthetic Agent into Spinal Canal, Percutaneous Approach (ICD-10-PCS; 2020-01-11)
PROC: 00HU33Z Insertion of Infusion Device into Spinal Canal, Percutaneous Approach (ICD-10-PCS; 2020-01-11)
DX: O99.284 Endocrine, nutritional and metabolic diseases complicating childbirth (principal); Z37.0 Single live birth; E03.9 Hypothyroidism, unspecified; O99.214 Obesity complicating childbirth; E66.9 Obesity, unspecified; O99.62 Diseases of the digestive system complicating childbirth; K21.9 Gastro-esophageal reflux disease without esophagitis; O24.429 Gestational diabetes mellitus in childbirth, unspecified control; Z87.891 Personal history of nicotine dependence; Z3A.37 37 weeks gestation of pregnancy
CPT/HCPCS: 36415; 51702; 59025; 59409; 82962; 85025; 86592; 86850; 86900; 86901; A9270-GY; J0171; J2405; J2590; J3010; J3490; J7120

== ENCOUNTER 2021-04-08 11:00 | Emergency (ER) | payer SELFPAY ==
[2021-04-08 11:36] VITALS: BP 150/97; PULSE 77
--- NOTE | 2021-04-08 12:07 | EDM.PDOC ---
ED HPI GENERAL MEDICAL PROBLEM - General Chief Complaint: Chest Pain Stated Complaint: CHEST PAIN/SOB Time Seen by Provider: 04/08/21 11:36 Source of Information: Reports: Patient, RN Notes Reviewed - History of Present Illness INITIAL COMMENTS - FREE TEXT/NARRATIVE: 41 yr old female with onset of L chest discomfort this morning several hrs ago, does not radiate to shoulder or arm. Slightly worse with deep breathing. No known personal cardiac hx but does have family hx of heart problems. Has not been recently ill. Treatments HEALTHCARE ADMINISTRATOR: Reports: Other (see below) Other Treatments HEALTHCARE ADMINISTRATOR: none Chest Pain Score (Numeric/FACES): 7 Bilateral Jaw Pain Score (Numeric/FACES): 8 Back Pain Score (Numeric/FACES): 9 - Related Data Allergies Allergy/AdvReac Type Severity Reaction Status Date / Time No Known Allergies Allergy Verified 01/10/20 13:58 Home Meds: Home Meds Sertraline [Zoloft] 50 mg PO DAILY 09/07/19 [History] Acetaminophen [Tylenol] 650 mg PO Q4H PRN tablet 01/12/20 [Rx] Ibuprofen [Motrin] 800 mg PO Q6H PRN tablet 01/12/20 [Rx] Thyroid [[place] Thyroid] 30 mg PO DAILY 04/08/21 [History] Past Medical History - Past Health History Medical/Surgical History: Denies Medical/Surgical History HEENT History: Reports: Impaired Vision Other HEENT History: Wears glasses Cardiovascular History: Reports: Hypertension, Other (See Below) Other Cardiovascular History: induced hypertention. 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: Psychiatric History: Reports: Anxiety Endocrine/Metabolic History: Reports: Diabetes, Gestational, Hypothyroidism, Obesity/BMI 30+ Hematologic History: Reports: Anemia, Other (See Below) Other Hematologic History: - Infectious Disease History Infectious Disease History: Reports: Chicken Pox - Past Surgical History HEENT Surgical History: Reports: None Cardiovascular Surgical History: Reports: None GI Surgical History: Reports: None Female Surgical History: Reports: LEEP, Other (See Below) Other Female Surgeries/Procedures: 2014 Endocrine Surgical History: Reports: None Social & Family History - Family History Family Medical History: No Pertinent Family History - Tobacco Use Tobacco Use Status *Q: Former Tobacco User Used Tobacco, but Quit: Yes Month/Year Tobacco Last Used: 2006 - Caffeine Use Caffeine Use: Reports: Energy Drinks Other Caffeine Use: 1-2 cups per day - Recreational Drug Use Recreational Drug Use: No ED ROS GENERAL - Review of Systems Review Of Systems: See Below Constitutional: Denies: Fever, Chills, Diaphoresis HEENT: Denies: Throat Pain Respiratory: Reports: Pleuritic Chest Pain (mild). Denies: Shortness of Breath, Wheezing, Cough Cardiovascular: Reports: Chest Pain GI/Abdominal: Denies: Abdominal Pain, Nausea, Vomiting Musculoskeletal: Denies: Shoulder Pain, Arm Pain Skin: Reports: No Symptoms Neurological: Reports: No Symptoms ED EXAM, NEURO - Physical Exam Exam: See Below General Appearance: Alert, No Apparent Distress Head Exam: Atraumatic Neck: Supple Respiratory/Chest: No Respiratory Distress, Lungs Clear, Normal Breath Sounds, Other (Tender L ant mid chest) Cardiovascular: Normal Peripheral Pulses, Regular Rate, Rhythm GI/Abdominal: Non-Tender Neurological: Alert, No Motor/Sensory Deficits, Oriented x 3 Extremities: Normal Inspection, Normal Range of Motion. No: Leg Pain, Increased Warmth, Redness Skin Exam: Warm, Dry, Normal Color #1 Interpretation EKG Date: 04/08/21 Rhythm: NSR [place]: Normal P-Wave: Present QRS: Other (q waves lead III) ST-T: Normal QT: Normal Course - Vital Signs Last Recorded V/S: Last Vital Signs Temp 96.0 F L 04/08/21 11:35 Pulse 77 04/08/21 11:35 Resp 17 04/08/21 11:35 BP 150/97 H 04/08/21 11:35 Pulse Ox 99 04/08/21 11:35 - Orders/Labs/Meds Orders: Active Orders 24 hr Category Date Time Status EKG 12 Lead [EK] Stat Ther 04/08/21 11:23 Ordered Labs: Laboratory Tests 04/08/21 04/08/21 Range/Units 11:25 11:25 D-Dimer, Quantitative 0.27 (0.19-0.50) mg/L Troponin I < 0.017 (0.00-0.056) ng/mL - Re-Assessments/Exams Free Text/Narrative Re-Assessment/Exam: 04/08/21 12:52 trop and D Dimer neg. Departure - Departure Time of Disposition: 12:52 Disposition: Home, Self-Care 01 Condition: Fair Clinical Impression: Atypical chest pain, Chest wall pain - Discharge Information Referrals: Evelia Patel, IVORY POLISHER [Primary Care Provider] - Forms: ED Department Discharge Additional Instructions: Ibuprofen 3 times daily or aleve twice daily as needed. Alternate ice and heat as needed. Follow up with your regular medical provider if not much better within 5 to 7 days, return to ED as needed if symptoms worsening in any way. Sepsis Event Note (ED) - Evaluation Sepsis Screening Result: No Definite Risk - Focused Exam Vital Signs: Vital Signs Temp Pulse Resp BP Pulse Ox 04/08/21 11:35 96.0 F L 77 17 150/97 H 99 04/08/21 11:24 96.0 F L 83 21 H 155/104 H 98 - My Orders Last 24 Hours: My Active Orders 04/08/21 11:23 EKG 12 Lead [EK] Stat - Assessment/Plan Last 24 Hours: My Active Orders 04/08/21 11:23 EKG 12 Lead [EK] Stat
--- NOTE | 2021-04-08 12:20 | CR ---
Chest: Portable view of the chest was obtained. Comparison: Prior chest x-ray 04/06/16 Heart size and mediastinum are within normal limits for portable technique. Lungs are clear with no acute parenchymal change. Osseous structures appear within normal limits for the patient's age. Impression: 1. Nothing acute is appreciated on portable chest x-ray. Diagnostic code #1
== END 2021-04-08 13:11 | disposition home or self-care (01) ==
LOC: JD.ED 11:00
DX: R07.89 Other chest pain (principal); I10 Essential (primary) hypertension; E03.9 Hypothyroidism, unspecified; E66.9 Obesity, unspecified; Z68.41 Body mass index [BMI] 40.0-44.9, adult; Z87.891 Personal history of nicotine dependence; Z79.899 Other long term (current) drug therapy
CPT/HCPCS: 36415; 71045; 71045-26; 84484; 85379; 93005; 93010; 99284; 99285-25